=== PATIENT | female | born 1940 | race Caucasian/White ===

== ENCOUNTER 2017-11-29 16:25 | Inpatient (IN) | payer MEDICARE, OTHER ==
[~2017-11-29] VITALS: Ht 177.8 cm; Wt 117.5 kg
[2017-11-29] MEDS ORDERED: SODIUM CHLORIDE FLUSH 10ML SYR IVF ONE (17:30)
[2017-11-29] MEDS ORDERED: SODIUM CHLORIDE 0.9% 1,000ML IVBOLUS ONE ×3 (17:30→19:30)
[2017-11-29 17:57] LABS: MEAN CORPUSCULAR HEMOGLOBIN 26.7 pg (27.0-34.8); MEAN CORPUSCULAR HGB CONC 32.7 g/dL (32.4-35.8); MEAN CORPUSCULAR VOLUME 81.5 fL (80-100); MEAN PLATELET VOLUME 7.1 fL (7.4-10.4); PLATELET COUNT 370 x10^3/uL (130-400); RED BLOOD COUNT 4.61 x10^6/uL (3.82-5.3); RED CELL DISTRIBUTION WIDTH 15.3 % (9.6-15.2)
[2017-11-29 18:06] LABS: INTERNATIONAL NORMALIZED RATIO 1.03 (0.93-1.1); PROTHROMBIN TIME 10.7 Seconds (9.6-11.5)
[2017-11-29 18:10] LABS: ALANINE AMINOTRANSFERASE 28 U/L (12-78); ALBUMIN 2.8 g/dL (3.4-5.0); ANION GAP 9 mmol/L (5-15); CALCIUM 8.8 mg/dL (8.5-10.1); CHLORIDE 99 mmol/L (98-107); CREATININE 0.92 mg/dL (0.55-1.02)
[2017-11-29 18:14] LABS: ALKALINE PHOSPHATASE 113 U/L (45-117); BILIRUBIN,TOTAL 0.8 mg/dL (0.2-1.0); TROPONIN I 0.049 ng/mL (0.000-0.045)
[2017-11-29 18:32] LABS: MD YES
[2017-11-29 18:34] LABS: BAND#(MANUAL) 1.33 x10^3/uL; BANDS%(MANUAL) 8 % (0-7); LYMPH#(MANUAL) 0.33 x10^3/uL (1-3.4); LYMPHS% (MANUAL) 2 % (22-44); MONOS#(MANUAL) 0.83 x10^3/uL (0.3-2.7); MONOS% (MANUAL) 5 % (2-9); SEGS% (MANUAL) 85 % (42-75)
[2017-11-29 18:37] LABS: <PLATELET ESTIMATE> ADEQUATE; <PLT MORPHOLOGY> NORMAL PLT MORPH; ANISOCYTOSIS 1+; MICROCYTOSIS 1+; POLYCHROMASIA 1+
[2017-11-29] MEDS ORDERED: ACETAMINOPHEN 500 MG TABLET ONE (18:56)
[2017-11-29] MEDS ORDERED: ACETAMINOPHEN 500 MG TABLET PO ONE (19:00)
[2017-11-29] MEDS ORDERED: CEFTRIAXONE PMX 1GM/50ML 50 ML IVPB ONE (19:00)
[2017-11-29] MEDS ORDERED: AMPICILLIN/SULBACTAM 3 GM in SODIUM CHLORIDE 0.9% 100 ML IVPB ONE (19:00)
[2017-11-29 19:13] LABS: MICROSCOPIC INDICATED
[2017-11-29 19:26] LABS: CULTURE INDICATED? NO
[2017-11-29] MEDS ORDERED: AMIO200T42 PO (20:24)
[2017-11-29] MEDS ORDERED: CLOP75TA52 PO (20:24)
[2017-11-29] MEDS ORDERED: METF500T4 PO (20:24)
[2017-11-29] MEDS ORDERED: LISI5TAB7 PO (20:24)
[2017-11-29] MEDS ORDERED: PHARMACOKINETIC MONITORING MC PRN (22:30)
[2017-11-29 22:40] VITALS: BP 104/42
[2017-11-29] MEDS ORDERED: SODIUM CHLORIDE 0.9%, 500ML IVBOLUS ONE (23:00)
[2017-11-29] MEDS: INSULIN ASPART 100 UNITS/ML, PEN SQ-INSULIN SCH (23:13)
[2017-11-29 23:16] VITALS: BP 113/45
[2017-11-30 00:17] VITALS: BP 121/53
[2017-11-30] MEDS: ENOXAPARIN 40 MG/0.4 ML SQ SCH (01:20)
[2017-11-30] MEDS: VANCOMYCIN 2,500 MG in SODIUM CHLORIDE 0.9% 500 ML IV SCH (01:20)
[2017-11-30] MEDS: ACETAMINOPHEN 325 MG TABLET PO PRN ×2 (03:12→08:34)
[2017-11-30] MEDS: PIPERACILLIN/TAZO/PMX 4.5GM 100 ML IV SCH ×3 (03:49→17:07)
[2017-11-30] MEDS ORDERED: VANCOMYCIN PER PHARMACY MC PRN (04:00)
[2017-11-30] MEDS: INSULIN ASPART 100 UNITS/ML, PEN SQ-INSULIN SCH ×4 (07:00→20:48)
[2017-11-30 07:12] LABS: MEAN CORPUSCULAR HEMOGLOBIN 26.9 pg (27.0-34.8); MEAN CORPUSCULAR HGB CONC 33.1 g/dL (32.4-35.8); MEAN CORPUSCULAR VOLUME 81.2 fL (80-100); MEAN PLATELET VOLUME 7.3 fL (7.4-10.4); PLATELET COUNT 267 x10^3/uL (130-400); RED BLOOD COUNT 3.68 x10^6/uL (3.82-5.3); RED CELL DISTRIBUTION WIDTH 15.5 % (9.6-15.2)
[2017-11-30 07:17] LABS: ANION GAP 9 mmol/L (5-15); CHLORIDE 104 mmol/L (98-107); CREATININE 0.88 mg/dL (0.55-1.02)
[2017-11-30 07:29] LABS: MD YES
[2017-11-30 07:30] LABS: EOS#(MANUAL) 0.31 x10^3/uL (0.0-0.4); EOS% (MANUAL) 2 % (1-7); LYMPH#(MANUAL) 1.38 x10^3/uL (1-3.4); LYMPHS% (MANUAL) 9 % (22-44); MONOS#(MANUAL) 0.77 x10^3/uL (0.3-2.7); MONOS% (MANUAL) 5 % (2-9); SEG#(MANUAL) 12.85 x10^3/uL (1.8-6.8); SEGS% (MANUAL) 84 % (42-75)
[2017-11-30 07:31] LABS: ANISOCYTOSIS 1+; MICROCYTOSIS 1+; POLYCHROMASIA 1+
[2017-11-30 07:32] LABS: <PLATELET ESTIMATE> ADEQUATE; <PLT MORPHOLOGY> NORMAL PLT MORPH
[2017-11-30 08:20] VITALS: BP 126/56
[2017-11-30] MEDS ORDERED: POTASSIUM CHLORIDE 20 MEQ TAB.ER.PRT PO ONE (08:30)
[2017-11-30] MEDS: AMIODARONE 200 MG TABLET PO SCH (08:34)
[2017-11-30] MEDS: CLOPIDOGREL 75 MG TABLET PO SCH (08:34)
[2017-11-30] MEDS: LISINOPRIL 5 MG TABLET PO SCH (08:35)
[2017-11-30] MEDS ORDERED: POTASSIUM CHLORIDE 10 MEQ TABLET.ER ONE (08:37)
[2017-11-30] MEDS ORDERED: MORPHINE SULFATE 4 MG/ML, 1ML IVPush ONE (12:30)
[2017-11-30] MEDS ORDERED: GADOBUTROL 10 MMOL/10 ML PFS ONE (13:14)
[2017-11-30 13:58] VITALS: BP 114/58
[2017-11-30 19:10] VITALS: BP 159/59
[2017-11-30] MEDS: PIPERACILLIN/TAZO 4.5 GM in SODIUM CHLORIDE 0.9% 100 ML IV SCH ×2 (20:49→23:34)
[2017-12-01 00:32] VITALS: BP 144/62
[2017-12-01] MEDS: ENOXAPARIN 40 MG/0.4 ML SQ SCH (01:19)
[2017-12-01] MEDS: VANCOMYCIN 2,500 MG in SODIUM CHLORIDE 0.9% 500 ML IV SCH (01:19)
[2017-12-01] MEDS: ACETAMINOPHEN 325 MG TABLET PO PRN ×2 (03:24→08:48)
[2017-12-01] MEDS: PIPERACILLIN/TAZO 4.5 GM in SODIUM CHLORIDE 0.9% 100 ML IV SCH ×3 (05:51→20:42)
[2017-12-01 05:58] LABS: ANION GAP 10 mmol/L (5-15); CALCIUM 8.6 mg/dL (8.5-10.1); CHLORIDE 105 mmol/L (98-107)
[2017-12-01 06:00] LABS: CREATININE 0.75 mg/dL (0.55-1.02)
[2017-12-01 06:11] LABS: MEAN CORPUSCULAR HGB CONC 32.9 g/dL (32.4-35.8); MEAN PLATELET VOLUME 7.5 fL (7.4-10.4); PLATELET COUNT 326 x10^3/uL (130-400); RED BLOOD COUNT 3.79 x10^6/uL (3.82-5.3); RED CELL DISTRIBUTION WIDTH 15.8 % (9.6-15.2)
[2017-12-01 06:34] LABS: BASOPHILS # (AUTO) 0.02 x10^3/uL (0-0.1); BASOPHILS % (AUTO) 0 % (0-1); EOSINOPHILS # (AUTO) 0.17 x10^3/uL (0-0.4); EOSINOPHILS % (AUTO) 1 % (1-7); LYMPHOCYTES # (AUTO) 1.66 x10^3/uL (1-3.4); LYMPHOCYTES % (AUTO) 14 % (22-44); MD SCAN; MONOCYTES # (AUTO) 0.93 x10^3/uL (0.2-0.8); MONOCYTES % (AUTO) 8 % (2-9); NEUTROPHILS # (AUTO) 9.33 x10^3/uL (1.8-6.8); NEUTROPHILS % (AUTO) 77 % (42-75)
[2017-12-01 07:10] VITALS: BP 171/70
[2017-12-01] MEDS: AMIODARONE 200 MG TABLET PO SCH (08:49)
[2017-12-01] MEDS: LISINOPRIL 5 MG TABLET PO SCH (08:49)
[2017-12-01] MEDS: INSULIN ASPART 100 UNITS/ML, PEN SQ-INSULIN SCH ×4 (08:49→20:43)
[2017-12-01] MEDS: CLOPIDOGREL 75 MG TABLET PO SCH (08:49)
[2017-12-01 13:30] VITALS: BP 169/69
[2017-12-01 20:00] VITALS: BP 167/66
[2017-12-02 02:00] VITALS: BP 165/60
[2017-12-02] MEDS: VANCOMYCIN 2,500 MG in SODIUM CHLORIDE 0.9% 500 ML IV SCH ×2 (02:00→20:29)
[2017-12-02] MEDS: ENOXAPARIN 40 MG/0.4 ML SQ SCH (02:01)
[2017-12-02] MEDS: PIPERACILLIN/TAZO 4.5 GM in SODIUM CHLORIDE 0.9% 100 ML IV SCH ×4 (04:59→19:40)
[2017-12-02 07:32] VITALS: BP 188/68
[2017-12-02 07:52] LABS: BASOPHILS # (AUTO) 0.03 x10^3/uL (0-0.1); BASOPHILS % (AUTO) 0 % (0-1); EOSINOPHILS # (AUTO) 0.19 x10^3/uL (0-0.4); EOSINOPHILS % (AUTO) 1 % (1-7); LYMPHOCYTES % (AUTO) 13 % (22-44); MD NO; MEAN CORPUSCULAR HEMOGLOBIN 26.8 pg (27.0-34.8); MEAN CORPUSCULAR HGB CONC 33.2 g/dL (32.4-35.8); MEAN CORPUSCULAR VOLUME 80.9 fL (80-100); MEAN PLATELET VOLUME 7.2 fL (7.4-10.4); MONOCYTES # (AUTO) 0.96 x10^3/uL (0.2-0.8); MONOCYTES % (AUTO) 7 % (2-9); NEUTROPHILS # (AUTO) 11.33 x10^3/uL (1.8-6.8); NEUTROPHILS % (AUTO) 79 % (42-75); PLATELET COUNT 398 x10^3/uL (130-400); RED BLOOD COUNT 4.24 x10^6/uL (3.82-5.3); RED CELL DISTRIBUTION WIDTH 15.2 % (9.6-15.2)
[2017-12-02 07:59] LABS: ANION GAP 11 mmol/L (5-15); CALCIUM 8.5 mg/dL (8.5-10.1); CHLORIDE 103 mmol/L (98-107)
[2017-12-02] MEDS: CLOPIDOGREL 75 MG TABLET PO SCH (08:39)
[2017-12-02] MEDS: AMIODARONE 200 MG TABLET PO SCH (08:39)
[2017-12-02] MEDS: INSULIN ASPART 100 UNITS/ML, PEN SQ-INSULIN SCH ×4 (08:39→20:29)
[2017-12-02] MEDS: LISINOPRIL 5 MG TABLET PO SCH (08:39)
[2017-12-02 11:58] VITALS: BP 162/71
[2017-12-02 13:42] VITALS: BP 158/61
[2017-12-02 18:44] VITALS: BP 168/72
[2017-12-02] MEDS: ACETAMINOPHEN 325 MG TABLET PO PRN (20:28)
[2017-12-03 00:55] VITALS: BP 161/65
[2017-12-03] MEDS: PIPERACILLIN/TAZO 4.5 GM in SODIUM CHLORIDE 0.9% 100 ML IV SCH ×4 (02:35→20:15)
[2017-12-03 04:54] LABS: INTERNATIONAL NORMALIZED RATIO 1.07 (0.93-1.1); PROTHROMBIN TIME 11.1 Seconds (9.6-11.5)
[2017-12-03 04:58] LABS: MEAN CORPUSCULAR HEMOGLOBIN 27.2 pg (27.0-34.8); MEAN CORPUSCULAR HGB CONC 33.2 g/dL (32.4-35.8); MEAN CORPUSCULAR VOLUME 81.8 fL (80-100); MEAN PLATELET VOLUME 7.3 fL (7.4-10.4); PLATELET COUNT 373 x10^3/uL (130-400); RED BLOOD COUNT 4.11 x10^6/uL (3.82-5.3); RED CELL DISTRIBUTION WIDTH 15.4 % (9.6-15.2)
[2017-12-03 05:01] LABS: ALBUMIN 2.4 g/dL (3.4-5.0); ANION GAP 9 mmol/L (5-15); CALCIUM 8.6 mg/dL (8.5-10.1); CHLORIDE 104 mmol/L (98-107)
[2017-12-03 05:05] LABS: ALANINE AMINOTRANSFERASE 23 U/L (12-78); ALKALINE PHOSPHATASE 124 U/L (45-117); BILIRUBIN,TOTAL 0.6 mg/dL (0.2-1.0); CREATININE 0.93 mg/dL (0.55-1.02); TOTAL PROTEIN 7.1 g/dL (6.4-8.2)
[2017-12-03 05:40] LABS: BASOPHILS # (AUTO) 0.03 x10^3/uL (0-0.1); BASOPHILS % (AUTO) 0 % (0-1); EOSINOPHILS # (AUTO) 0.24 x10^3/uL (0-0.4); EOSINOPHILS % (AUTO) 2 % (1-7); LYMPHOCYTES % (AUTO) 14 % (22-44); MD SCAN; MONOCYTES # (AUTO) 0.86 x10^3/uL (0.2-0.8); MONOCYTES % (AUTO) 7 % (2-9); NEUTROPHILS # (AUTO) 9.11 x10^3/uL (1.8-6.8); NEUTROPHILS % (AUTO) 77 % (42-75)
[2017-12-03 07:43] VITALS: BP 186/75
[2017-12-03] MEDS: INSULIN ASPART 100 UNITS/ML, PEN SQ-INSULIN SCH ×4 (08:07→20:15)
[2017-12-03] MEDS: AMIODARONE 200 MG TABLET PO SCH (08:08)
[2017-12-03] MEDS: CLOPIDOGREL 75 MG TABLET PO SCH (08:08)
[2017-12-03] MEDS: LISINOPRIL 5 MG TABLET PO SCH (08:08)
[2017-12-03] MEDS: ENOXAPARIN 40 MG/0.4 ML SQ SCH (08:09)
[2017-12-03] MEDS ORDERED: GLYCERIN ADULT SUPP PR PRN (09:30)
[2017-12-03] MEDS ORDERED: MAGNESIUM CITRATE 300ML ORAL SOL PO PRN (09:30)
[2017-12-03] MEDS ORDERED: LABETALOL 5MG/ML, 20ML IVPush PRN (09:30)
[2017-12-03 11:25] VITALS: BP 187/77
[2017-12-03] MEDS: hydrALAzine 20 MG/ML, 1ML IV PRN (11:57)
[2017-12-03] MEDS: POLYETHYLENE GLYCOL 17 GM PACKET PO SCH (11:57)
[2017-12-03 13:49] VITALS: BP 168/72
[2017-12-03] MEDS: VANCOMYCIN 2,500 MG in SODIUM CHLORIDE 0.9% 500 ML IV SCH (14:27)
[2017-12-03 19:41] VITALS: BP 151/67
[2017-12-04 01:50] VITALS: BP 147/62
[2017-12-04] MEDS: PIPERACILLIN/TAZO 4.5 GM in SODIUM CHLORIDE 0.9% 100 ML IV SCH ×4 (02:22→21:16)
[2017-12-04 07:23] VITALS: BP 162/75
[2017-12-04] MEDS: VANCOMYCIN 2,500 MG in SODIUM CHLORIDE 0.9% 500 ML IV SCH (08:00)
[2017-12-04 08:02] LABS: MEAN CORPUSCULAR HEMOGLOBIN 26.7 pg (27.0-34.8); MEAN CORPUSCULAR VOLUME 81.1 fL (80-100); MEAN PLATELET VOLUME 7.5 fL (7.4-10.4); PLATELET COUNT 413 x10^3/uL (130-400); RED BLOOD COUNT 4.46 x10^6/uL (3.82-5.3); RED CELL DISTRIBUTION WIDTH 15.4 % (9.6-15.2)
[2017-12-04 08:13] LABS: ALBUMIN 2.1 g/dL (3.4-5.0); ANION GAP 9 mmol/L (5-15); CALCIUM 8.6 mg/dL (8.5-10.1); CHLORIDE 105 mmol/L (98-107)
[2017-12-04 08:15] LABS: CREATININE 1.08 mg/dL (0.55-1.02)
[2017-12-04] MEDS: INSULIN ASPART 100 UNITS/ML, PEN SQ-INSULIN SCH ×4 (08:29→21:15)
[2017-12-04] MEDS: AMIODARONE 200 MG TABLET PO SCH (08:30)
[2017-12-04] MEDS: LISINOPRIL 5 MG TABLET PO SCH (08:31)
[2017-12-04] MEDS: POLYETHYLENE GLYCOL 17 GM PACKET PO SCH (08:31)
[2017-12-04] MEDS: CLOPIDOGREL 75 MG TABLET PO SCH (08:32)
[2017-12-04] MEDS: ENOXAPARIN 40 MG/0.4 ML SQ SCH (08:34)
[2017-12-04 08:51] LABS: BASOPHILS # (AUTO) 0.03 x10^3/uL (0-0.1); BASOPHILS % (AUTO) 0 % (0-1); EOSINOPHILS # (AUTO) 0.15 x10^3/uL (0-0.4); EOSINOPHILS % (AUTO) 1 % (1-7); LYMPHOCYTES # (AUTO) 1.52 x10^3/uL (1-3.4); LYMPHOCYTES % (AUTO) 11 % (22-44); MD SCAN; MONOCYTES # (AUTO) 0.71 x10^3/uL (0.2-0.8); MONOCYTES % (AUTO) 5 % (2-9); NEUTROPHILS # (AUTO) 11.52 x10^3/uL (1.8-6.8); NEUTROPHILS % (AUTO) 83 % (42-75)
[2017-12-04] MEDS ORDERED: MAGNESIUM SULFATE PMX 4GM/100M 100 ML IV ONE (09:00)
[2017-12-04 13:59] VITALS: BP 177/67
[2017-12-04 17:55] VITALS: BP 167/59
[2017-12-04 19:44] VITALS: BP 159/64
[2017-12-05] VITALS (8 sets, daily range): BP systolic 156–194; BP diastolic 58–99
[2017-12-05] MEDS: PIPERACILLIN/TAZO 4.5 GM in SODIUM CHLORIDE 0.9% 100 ML IV SCH ×4 (01:35→20:51)
[2017-12-05] MEDS ORDERED: VANCOMYCIN 2,500 MG in SODIUM CHLORIDE 0.9% 500 ML IV SCH (02:00)
[2017-12-05 05:17] LABS: MEAN CORPUSCULAR HEMOGLOBIN 26.9 pg (27.0-34.8); MEAN CORPUSCULAR HGB CONC 32.9 g/dL (32.4-35.8); MEAN CORPUSCULAR VOLUME 81.9 fL (80-100); MEAN PLATELET VOLUME 6.9 fL (7.4-10.4); PLATELET COUNT 363 x10^3/uL (130-400); RED BLOOD COUNT 4.14 x10^6/uL (3.82-5.3); RED CELL DISTRIBUTION WIDTH 15.5 % (9.6-15.2)
[2017-12-05 05:55] LABS: BASOPHILS # (AUTO) 0.11 x10^3/uL (0-0.1); BASOPHILS % (AUTO) 1 % (0-1); EOSINOPHILS % (AUTO) 2 % (1-7); LYMPHOCYTES # (AUTO) 1.88 x10^3/uL (1-3.4); LYMPHOCYTES % (AUTO) 17 % (22-44); MD SCAN; MONOCYTES # (AUTO) 0.59 x10^3/uL (0.2-0.8); MONOCYTES % (AUTO) 5 % (2-9); NEUTROPHILS # (AUTO) 8.55 x10^3/uL (1.8-6.8); NEUTROPHILS % (AUTO) 75 % (42-75)
[2017-12-05] MEDS: hydrALAzine 20 MG/ML, 1ML IV PRN (06:39)
[2017-12-05 06:40] LABS: ANION GAP 10 mmol/L (5-15); CHLORIDE 106 mmol/L (98-107)
[2017-12-05 06:41] LABS: ALBUMIN 2.3 g/dL (3.4-5.0); CREATININE 1.15 mg/dL (0.55-1.02)
[2017-12-05] MEDS: INSULIN ASPART 100 UNITS/ML, PEN SQ-INSULIN SCH ×4 (09:13→20:51)
[2017-12-05] MEDS: POLYETHYLENE GLYCOL 17 GM PACKET PO SCH (09:13)
[2017-12-05] MEDS: ENOXAPARIN 40 MG/0.4 ML SQ SCH (09:14)
[2017-12-05] MEDS: LISINOPRIL 5 MG TABLET PO SCH (09:14)
[2017-12-05] MEDS: CLOPIDOGREL 75 MG TABLET PO SCH (09:14)
[2017-12-05] MEDS: SENNA/DOCUSATE TABLET PO PRN (09:16)
[2017-12-05] MEDS: AMIODARONE 200 MG TABLET PO SCH (09:16)
[2017-12-06] MEDS: PIPERACILLIN/TAZO 4.5 GM in SODIUM CHLORIDE 0.9% 100 ML IV SCH ×4 (02:35→21:07)
[2017-12-06 03:07] VITALS: BP 161/62
[2017-12-06] MEDS ORDERED: LISINOPRIL 10 MG TABLET ONE (08:07)
[2017-12-06 08:21] VITALS: BP 182/81
[2017-12-06] MEDS: CLOPIDOGREL 75 MG TABLET PO SCH (08:21)
[2017-12-06] MEDS: AMIODARONE 200 MG TABLET PO SCH (08:21)
[2017-12-06] MEDS: LISINOPRIL 10 MG TABLET PO SCH (08:21)
[2017-12-06] MEDS: ENOXAPARIN 40 MG/0.4 ML SQ SCH (08:22)
[2017-12-06] MEDS: POLYETHYLENE GLYCOL 17 GM PACKET PO SCH (08:22)
[2017-12-06] MEDS: hydrALAzine 20 MG/ML, 1ML IV PRN ×2 (08:23→14:31)
[2017-12-06 08:50] LABS: INTERNATIONAL NORMALIZED RATIO 1.04 (0.93-1.1); PROTHROMBIN TIME 10.8 Seconds (9.6-11.5)
[2017-12-06 08:54] LABS: ANION GAP 10 mmol/L (5-15); CALCIUM 8.8 mg/dL (8.5-10.1); CHLORIDE 101 mmol/L (98-107)
[2017-12-06 09:15] LABS: BASOPHILS # (AUTO) 0.02 x10^3/uL (0-0.1); BASOPHILS % (AUTO) 0 % (0-1); EOSINOPHILS # (AUTO) 0.14 x10^3/uL (0-0.4); EOSINOPHILS % (AUTO) 2 % (1-7); LYMPHOCYTES # (AUTO) 1.27 x10^3/uL (1-3.4); LYMPHOCYTES % (AUTO) 13 % (22-44); MD NO; MEAN CORPUSCULAR HEMOGLOBIN 26.7 pg (27.0-34.8); MEAN CORPUSCULAR HGB CONC 32.7 g/dL (32.4-35.8); MEAN CORPUSCULAR VOLUME 81.8 fL (80-100); MEAN PLATELET VOLUME 7.4 fL (7.4-10.4); MONOCYTES # (AUTO) 0.62 x10^3/uL (0.2-0.8); MONOCYTES % (AUTO) 7 % (2-9); NEUTROPHILS % (AUTO) 79 % (42-75); PLATELET COUNT 362 x10^3/uL (130-400); RED BLOOD COUNT 4.27 x10^6/uL (3.82-5.3); RED CELL DISTRIBUTION WIDTH 15.8 % (9.6-15.2)
[2017-12-06] MEDS: INSULIN ASPART 100 UNITS/ML, PEN SQ-INSULIN SCH ×4 (09:49→22:01)
[2017-12-06 09:54] VITALS: BP 163/52
[2017-12-06 14:24] VITALS: BP 176/65
[2017-12-06 16:29] VITALS: BP 171/70
[2017-12-06] MEDS ORDERED: MIDAZOLAM 1 MG/ML, 2ML ONE (17:17)
[2017-12-06] MEDS ORDERED: FENTANYL PF 250 MCG/5ML ONE (17:17)
[2017-12-06] MEDS ORDERED: NEOSTIGMINE 1 MG/ML, 10ML ONE (17:22)
[2017-12-06] MEDS ORDERED: GLYCOPYRROLATE 0.2MG/1ML, 5ML ONE (17:22)
[2017-12-06] MEDS ORDERED: PROPOFOL 10 MG/ML, 20ML ONE (17:22)
[2017-12-06] MEDS ORDERED: SUCCINYLCHOLINE 20 MG/ML, 10ML ONE (17:22)
[2017-12-06] MEDS ORDERED: DEXAMETHASONE 4 MG/ML, 1ML ONE (17:22)
[2017-12-06] MEDS ORDERED: ROCURONIUM 10 MG/ML,10ML ONE (17:22)
[2017-12-06] MEDS ORDERED: ONDANSETRON 2MG/ML, 2ML ONE (17:22)
[2017-12-06] MEDS ORDERED: CEFAZOLIN 1,000 MG ONE (17:22)
[2017-12-06] MEDS ORDERED: ONDANSETRON 2MG/ML, 2ML IVPush PRN (17:30)
[2017-12-06] MEDS ORDERED: HYDROcodone/APAP 7.5-325MG/15ML UDC PO PRN (17:30)
[2017-12-06] MEDS ORDERED: hydrALAzine 20 MG/ML, 1ML IV PRN (17:30)
[2017-12-06] MEDS ORDERED: ACETAMINOPHEN 325 MG TABLET PO PRN (17:30)
[2017-12-06] MEDS ORDERED: LABETALOL 5MG/ML, 20ML IV PRN (17:30)
[2017-12-06] MEDS ORDERED: FENTANYL PF 100 MCG/2ML IV PRN (17:30)
[2017-12-06] MEDS ORDERED: OXYcodone 5 MG/5 ML ORAL.SOL UDC PO PRN (17:30)
[2017-12-06] MEDS ORDERED: PROMETHAZINE 25 MG/ML, 1ML IV PRN (17:30)
[2017-12-06] MEDS ORDERED: PHENYLEPHRINE 10 MG/ML ONE (17:39)
[2017-12-06] MEDS ORDERED: FENTANYL PF 100 MCG/2ML ONE (18:20)
[2017-12-06] MEDS ORDERED: HYDROmorphone 2 MG/ML, 1ML ONE (19:38)
[2017-12-06] MEDS ORDERED: ACETAMINOPHEN 650 MG/20.3 ML UDC ONE (19:38)
[2017-12-06] MEDS ORDERED: OXYcodone 5 MG/5 ML ORAL.SOL UDC ONE (19:38)
[2017-12-06] MEDS: HYDROmorphone 1 MG/ML, 1ML IV PRN ×2 (19:44→19:50)
[2017-12-06] MEDS ORDERED: DIPHENHYDRAMINE 50 MG/ML, 1ML ONE (19:54)
[2017-12-06] MEDS: DIPHENHYDRAMINE 50 MG/ML, 1ML IVPush PRN (19:58)
[2017-12-06 21:16] VITALS: BP 144/54
[2017-12-07 00:24] VITALS: BP 150/67
[2017-12-07] MEDS: PIPERACILLIN/TAZO 4.5 GM in SODIUM CHLORIDE 0.9% 100 ML IV SCH ×4 (02:48→19:59)
[2017-12-07] MEDS: HYDROcodone/APAP 5/325 TABLET PO PRN ×4 (02:48→18:52)
[2017-12-07 05:28] LABS: MEAN CORPUSCULAR HEMOGLOBIN 25.4 pg (27.0-34.8); MEAN CORPUSCULAR HGB CONC 31.2 g/dL (32.4-35.8); MEAN CORPUSCULAR VOLUME 81.3 fL (80-100); MEAN PLATELET VOLUME 6.8 fL (7.4-10.4); PLATELET COUNT 348 x10^3/uL (130-400); RED BLOOD COUNT 3.89 x10^6/uL (3.82-5.3); RED CELL DISTRIBUTION WIDTH 15.4 % (9.6-15.2)
[2017-12-07 05:39] LABS: ALBUMIN 2.4 g/dL (3.4-5.0); ANION GAP 11 mmol/L (5-15); CALCIUM 8.1 mg/dL (8.5-10.1); CHLORIDE 105 mmol/L (98-107)
[2017-12-07 06:05] LABS: BASOPHILS # (AUTO) 0.08 x10^3/uL (0-0.1); BASOPHILS % (AUTO) 1 % (0-1); EOSINOPHILS # (AUTO) 0.01 x10^3/uL (0-0.4); EOSINOPHILS % (AUTO) 0 % (1-7); LYMPHOCYTES % (AUTO) 4 % (22-44); MD SCAN; MONOCYTES # (AUTO) 0.77 x10^3/uL (0.2-0.8); MONOCYTES % (AUTO) 5 % (2-9); NEUTROPHILS # (AUTO) 14.43 x10^3/uL (1.8-6.8); NEUTROPHILS % (AUTO) 90 % (42-75)
[2017-12-07] MEDS: INSULIN ASPART 100 UNITS/ML, PEN SQ-INSULIN SCH ×3 (08:53→12:48)
[2017-12-07] MEDS: AMIODARONE 200 MG TABLET PO SCH (08:54)
[2017-12-07] MEDS: CLOPIDOGREL 75 MG TABLET PO SCH (08:54)
[2017-12-07] MEDS: LISINOPRIL 10 MG TABLET PO SCH (08:54)
[2017-12-07] MEDS: POLYETHYLENE GLYCOL 17 GM PACKET PO SCH (08:55)
[2017-12-07] MEDS: ENOXAPARIN 40 MG/0.4 ML SQ SCH (08:55)
[2017-12-07 11:08] VITALS: BP 136/53
[2017-12-07 12:57] VITALS: BP 141/58
[2017-12-07] MEDS: INSULIN LISPRO 100 UNITS/ML, PEN SQ-INSULIN SCH ×2 (16:15→19:59)
[2017-12-07 18:17] VITALS: BP 136/52
[2017-12-07] MEDS: DIPHENHYDRAMINE 50 MG/ML, 1ML IVPush PRN (20:17)
[2017-12-08 01:04] VITALS: BP 126/59
[2017-12-08] MEDS: PIPERACILLIN/TAZO/PMX 4.5GM 100 ML IV SCH ×4 (02:36→21:11)
[2017-12-08] MEDS: HYDROcodone/APAP 5/325 TABLET PO PRN ×3 (04:15→23:14)
[2017-12-08 05:00] LABS: MEAN CORPUSCULAR HEMOGLOBIN 26.9 pg (27.0-34.8); MEAN CORPUSCULAR HGB CONC 32.8 g/dL (32.4-35.8); MEAN CORPUSCULAR VOLUME 81.9 fL (80-100); MEAN PLATELET VOLUME 7.3 fL (7.4-10.4); PLATELET COUNT 353 x10^3/uL (130-400); RED BLOOD COUNT 3.45 x10^6/uL (3.82-5.3); RED CELL DISTRIBUTION WIDTH 16.1 % (9.6-15.2)
[2017-12-08 05:08] LABS: ALANINE AMINOTRANSFERASE 24 U/L (12-78); ALBUMIN 2.4 g/dL (3.4-5.0); ANION GAP 8 mmol/L (5-15); CHLORIDE 104 mmol/L (98-107); CREATININE 1.32 mg/dL (0.55-1.02)
[2017-12-08 05:10] LABS: ALKALINE PHOSPHATASE 78 U/L (45-117); BILIRUBIN,TOTAL 0.5 mg/dL (0.2-1.0); TOTAL PROTEIN 6.7 g/dL (6.4-8.2)
[2017-12-08 05:50] LABS: BASOPHILS # (AUTO) 0.03 x10^3/uL (0-0.1); BASOPHILS % (AUTO) 0 % (0-1); EOSINOPHILS # (AUTO) 0.18 x10^3/uL (0-0.4); EOSINOPHILS % (AUTO) 1 % (1-7); LYMPHOCYTES # (AUTO) 2.32 x10^3/uL (1-3.4); LYMPHOCYTES % (AUTO) 18 % (22-44); MD SCAN; MONOCYTES # (AUTO) 0.86 x10^3/uL (0.2-0.8); MONOCYTES % (AUTO) 7 % (2-9); NEUTROPHILS # (AUTO) 9.54 x10^3/uL (1.8-6.8); NEUTROPHILS % (AUTO) 74 % (42-75)
[2017-12-08 07:56] VITALS: BP 136/53
[2017-12-08] MEDS: INSULIN LISPRO 100 UNITS/ML, PEN SQ-INSULIN SCH ×4 (08:18→21:11)
[2017-12-08] MEDS: POLYETHYLENE GLYCOL 17 GM PACKET PO SCH (08:25)
[2017-12-08] MEDS: AMIODARONE 200 MG TABLET PO SCH (08:26)
[2017-12-08] MEDS: CLOPIDOGREL 75 MG TABLET PO SCH (08:26)
[2017-12-08] MEDS: SENNA/DOCUSATE TABLET PO PRN (08:26)
[2017-12-08] MEDS ORDERED: MAGNESIUM SULFATE PMX 2GM/50ML 50 ML IV ONE (08:30)
[2017-12-08] MEDS ORDERED: AMLODIPINE 2.5 MG TABLET PO SCH (09:00)
[2017-12-08] MEDS ORDERED: SODIUM CHLORIDE 0.9% 1,000 ML IV ONE (09:30)
[2017-12-08 10:59] VITALS: BP 125/71
[2017-12-08] MEDS: ENOXAPARIN 40 MG/0.4 ML SQ SCH (11:33)
[2017-12-08 13:08] VITALS: BP 149/59
[2017-12-08 19:38] VITALS: BP 156/66
[2017-12-09 00:56] VITALS: BP 157/60
[2017-12-09] MEDS: HYDROcodone/APAP 5/325 TABLET PO PRN ×4 (02:08→23:29)
[2017-12-09] MEDS: PIPERACILLIN/TAZO/PMX 4.5GM 100 ML IV SCH (04:17)
[2017-12-09 04:58] LABS: BASOPHILS # (AUTO) 0.04 x10^3/uL (0-0.1); BASOPHILS % (AUTO) 0 % (0-1); EOSINOPHILS # (AUTO) 0.17 x10^3/uL (0-0.4); EOSINOPHILS % (AUTO) 2 % (1-7); LYMPHOCYTES # (AUTO) 1.71 x10^3/uL (1-3.4); LYMPHOCYTES % (AUTO) 16 % (22-44); MD NO; MEAN CORPUSCULAR HEMOGLOBIN 27.8 pg (27.0-34.8); MEAN CORPUSCULAR HGB CONC 33.5 g/dL (32.4-35.8); MEAN PLATELET VOLUME 7.3 fL (7.4-10.4); MONOCYTES # (AUTO) 0.73 x10^3/uL (0.2-0.8); MONOCYTES % (AUTO) 7 % (2-9); NEUTROPHILS # (AUTO) 8.26 x10^3/uL (1.8-6.8); NEUTROPHILS % (AUTO) 76 % (42-75); PLATELET COUNT 295 x10^3/uL (130-400); RED BLOOD COUNT 3.29 x10^6/uL (3.82-5.3); RED CELL DISTRIBUTION WIDTH 15.8 % (9.6-15.2)
[2017-12-09 05:11] LABS: CHLORIDE 106 mmol/L (98-107)
[2017-12-09 05:17] LABS: ANION GAP 9 mmol/L (5-15); CALCIUM 8.1 mg/dL (8.5-10.1); CREATININE 1.15 mg/dL (0.55-1.02)
[2017-12-09 07:15] VITALS: BP 151/66
[2017-12-09] MEDS ORDERED: LABETALOL 5MG/ML, 20ML IVPush PRN (08:30)
[2017-12-09] MEDS: CLOPIDOGREL 75 MG TABLET PO SCH (08:33)
[2017-12-09] MEDS: POLYETHYLENE GLYCOL 17 GM PACKET PO SCH (08:33)
[2017-12-09] MEDS: AMIODARONE 200 MG TABLET PO SCH (08:33)
[2017-12-09] MEDS: AMLODIPINE 5 MG TABLET PO SCH (08:33)
[2017-12-09] MEDS: INSULIN LISPRO 100 UNITS/ML, PEN SQ-INSULIN SCH ×4 (08:34→22:02)
[2017-12-09] MEDS: ENOXAPARIN 40 MG/0.4 ML SQ SCH (12:10)
[2017-12-09 14:54] VITALS: BP 149/43
[2017-12-09 19:06] VITALS: BP 148/55
[2017-12-10 02:19] VITALS: BP 169/64
[2017-12-10 07:15] VITALS: BP 169/66
[2017-12-10] MEDS: AMLODIPINE 5 MG TABLET PO SCH (09:26)
[2017-12-10] MEDS: POLYETHYLENE GLYCOL 17 GM PACKET PO SCH (09:26)
[2017-12-10] MEDS: HYDROcodone/APAP 5/325 TABLET PO PRN (09:26)
[2017-12-10] MEDS: AMIODARONE 200 MG TABLET PO SCH (09:26)
[2017-12-10] MEDS: CLOPIDOGREL 75 MG TABLET PO SCH (09:26)
[2017-12-10] MEDS: INSULIN LISPRO 100 UNITS/ML, PEN SQ-INSULIN SCH ×4 (09:26→20:32)
[2017-12-10 12:30] LABS: MICROSCOPIC AUTO
[2017-12-10 12:32] LABS: CULTURE INDICATED? YES
[2017-12-10] MEDS: ENOXAPARIN 40 MG/0.4 ML SQ SCH (13:18)
[2017-12-10 13:45] VITALS: BP 149/61
[2017-12-10] MEDS ORDERED: CEFTRIAXONE 1,000 MG in SODIUM CHLORIDE 0.9% 50 ML IV SCH (18:00)
[2017-12-10 19:32] VITALS: BP 160/62
[2017-12-11 02:05] VITALS: BP 166/63
[2017-12-11 05:27] LABS: BASOPHILS # (AUTO) 0.02 x10^3/uL (0-0.1); BASOPHILS % (AUTO) 0 % (0-1); EOSINOPHILS # (AUTO) 0.18 x10^3/uL (0-0.4); EOSINOPHILS % (AUTO) 2 % (1-7); LYMPHOCYTES # (AUTO) 1.75 x10^3/uL (1-3.4); LYMPHOCYTES % (AUTO) 15 % (22-44); MD NO; MEAN CORPUSCULAR HEMOGLOBIN 26.9 pg (27.0-34.8); MEAN CORPUSCULAR HGB CONC 32.9 g/dL (32.4-35.8); MEAN CORPUSCULAR VOLUME 81.9 fL (80-100); MEAN PLATELET VOLUME 7.3 fL (7.4-10.4); MONOCYTES # (AUTO) 0.71 x10^3/uL (0.2-0.8); MONOCYTES % (AUTO) 6 % (2-9); NEUTROPHILS # (AUTO) 9.16 x10^3/uL (1.8-6.8); NEUTROPHILS % (AUTO) 78 % (42-75); PLATELET COUNT 403 x10^3/uL (130-400); RED BLOOD COUNT 3.85 x10^6/uL (3.82-5.3)
[2017-12-11 05:35] LABS: CHLORIDE 103 mmol/L (98-107)
[2017-12-11 05:51] LABS: ALBUMIN 2.6 g/dL (3.4-5.0); ANION GAP 10 mmol/L (5-15); CALCIUM 9.2 mg/dL (8.5-10.1); CREATININE 0.88 mg/dL (0.55-1.02)
[2017-12-11 07:20] VITALS: BP 179/73
[2017-12-11] MEDS: POLYETHYLENE GLYCOL 17 GM PACKET PO SCH (08:11)
[2017-12-11] MEDS: INSULIN LISPRO 100 UNITS/ML, PEN SQ-INSULIN SCH ×3 (08:12→16:56)
[2017-12-11] MEDS: AMIODARONE 200 MG TABLET PO SCH (08:12)
[2017-12-11] MEDS: CLOPIDOGREL 75 MG TABLET PO SCH (08:12)
[2017-12-11] MEDS ORDERED: MAGNESIUM SULFATE PMX 4GM/100M 100 ML IV ONE (09:00)
[2017-12-11] MEDS ORDERED: AMLODIPINE 5 MG TABLET PO SCH (09:00)
[2017-12-11] MEDS: ENOXAPARIN 40 MG/0.4 ML SQ SCH (12:26)
[2017-12-11] MEDS: HYDROcodone/APAP 5/325 TABLET PO PRN (12:27)
[2017-12-11 13:33] VITALS: BP 151/57
== END 2017-12-11 17:28 | DRG 853 ==
LOC: ED 18:14 → EDIP 19:16 → 3NE 22:03
PROVIDERS: ADMIT Internal Medicine; ATTEND Internal Medicine
PROC: 0T9B70Z Drainage of Bladder with Drainage Device, Via Natural or Artificial Opening (ICD-10-PCS; 2017-11-29)
PROC: 0Y6J0Z1 Detachment at Left Lower Leg, High, Open Approach (ICD-10-PCS; principal; 2017-12-06 17:30)
DX: A41.9 Sepsis, unspecified organism (principal); E43 Unspecified severe protein-calorie malnutrition; N17.9 Acute kidney failure, unspecified; E11.40 Type 2 diabetes mellitus with diabetic neuropathy, unspecified; E11.621 Type 2 diabetes mellitus with foot ulcer; I48.91 Unspecified atrial fibrillation; E66.01 Morbid (severe) obesity due to excess calories; L03.116 Cellulitis of left lower limb; E11.65 Type 2 diabetes mellitus with hyperglycemia; Z68.41 Body mass index [BMI] 40.0-44.9, adult; L97.409 Non-pressure chronic ulcer of unspecified heel and midfoot with unspecified severity; N39.0 Urinary tract infection, site not specified; M86.8X7 Other osteomyelitis, ankle and foot; W18.30XA Fall on same level, unspecified, initial encounter; D64.9 Anemia, unspecified; I10 Essential (primary) hypertension; E11.610 Type 2 diabetes mellitus with diabetic neuropathic arthropathy; E11.69 Type 2 diabetes mellitus with other specified complication; E83.42 Hypomagnesemia; I25.10 Atherosclerotic heart disease of native coronary artery without angina pectoris; K59.00 Constipation, unspecified; R09.02 Hypoxemia; R65.20 Severe sepsis without septic shock; S91.332A Puncture wound without foreign body, left foot, initial encounter; Z79.899 Other long term (current) drug therapy; Z79.02 Long term (current) use of antithrombotics/antiplatelets; Z95.5 Presence of coronary angioplasty implant and graft; Y93.89 Activity, other specified; Y99.8 Other external cause status; Y92.041 Bathroom in boarding-house as the place of occurrence of the external cause; Z90.49 Acquired absence of other specified parts of digestive tract
CPT/HCPCS: 36415; 71045; 80048; 80053; 80202; 81001; 82040; 82947; 82962; 83605; 83735; 83880; 84145; 84484; 85025; 85610; 85730; 87040; 87086; 87106; 88307; 93005; 93922; 96361; 96365; A9585; J0295; J0690; J0696; J1100; J1170; J1650; J1815; J2250; J2405; J2543; J2704; J2710; J3010; J3370; J3490; J0330; J0360; J1200; J2370; J3475; J7030; J7040

== ENCOUNTER 2018-05-04 17:15 | Inpatient (IN) | payer MEDICARE ==
[~2018-05-04] VITALS: Ht 175.3 cm; Wt 107.7 kg
[~2018-05-04 17:15] MED LIST: AMIO200T42 PO; CLOP75TA52 PO; LISI5TAB7 PO; METF500T5 PO
[2018-05-04] MEDS ORDERED: METF500T27 PO (17:24)
[2018-05-04] MEDS ORDERED: MORPHINE SULFATE 4 MG/ML, 1ML ONE (18:16)
[2018-05-04] MEDS ORDERED: SODIUM CHLORIDE FLUSH 10ML SYR IVF ONE (18:30)
[2018-05-04] MEDS ORDERED: SODIUM CHLORIDE 0.9% 1,000ML IVBOLUS ONE (18:30)
[2018-05-04] MEDS ORDERED: MORPHINE SULFATE 4 MG/ML, 1ML IVPush PRN (18:30)
[2018-05-04 18:31] LABS: MEAN CORPUSCULAR HEMOGLOBIN 28.1 pg (27.0-34.8); MEAN CORPUSCULAR HGB CONC 33.3 g/dL (32.4-35.8); MEAN CORPUSCULAR VOLUME 84.5 fL (80-100); MEAN PLATELET VOLUME 7.6 fL (7.4-10.4); PLATELET COUNT 349 x10^3/uL (130-400); RED BLOOD COUNT 5.45 x10^6/uL (3.82-5.3); RED CELL DISTRIBUTION WIDTH 14.7 % (9.6-15.2)
[2018-05-04 18:39] LABS: INTERNATIONAL NORMALIZED RATIO 1.11 (0.93-1.1); PROTHROMBIN TIME 11.4 Seconds (9.6-11.5)
[2018-05-04 18:44] LABS: ALANINE AMINOTRANSFERASE 732 U/L (12-78); ALBUMIN 3.4 g/dL (3.4-5.0); ANION GAP 17 mmol/L (5-15); CALCIUM 9.5 mg/dL (8.5-10.1); CHLORIDE 97 mmol/L (98-107); CREATININE 1.25 mg/dL (0.55-1.02)
[2018-05-04 18:46] LABS: ALKALINE PHOSPHATASE 412 U/L (45-117); BILIRUBIN,TOTAL 4.9 mg/dL (0.2-1.0); TOTAL PROTEIN 8.3 g/dL (6.4-8.2)
[2018-05-04 18:47] LABS: MD YES
[2018-05-04 18:49] LABS: BAND#(MANUAL) 0.85 x10^3/uL; BANDS%(MANUAL) 5 % (0-7); LYMPH#(MANUAL) 0.51 x10^3/uL (1-3.4); LYMPHS% (MANUAL) 3 % (22-44); MONOS#(MANUAL) 0.34 x10^3/uL (0.3-2.7); MONOS% (MANUAL) 2 % (2-9); SEGS% (MANUAL) 90 % (42-75)
[2018-05-04 18:50] LABS: <PLATELET ESTIMATE> ADEQUATE; <PLT MORPHOLOGY> NORMAL PLT MORPH; <RBC MORPHOLOGY> NORMAL
[2018-05-04 18:57] LABS: MICROSCOPIC INDICATED
[2018-05-04] MEDS ORDERED: INSULIN REGULAR 100 UNITS/ML, 3ML VIAL SQ-INSULIN ONE (19:00)
[2018-05-04] MEDS ORDERED: INSULIN REGULAR 100 UNITS/ML, 3ML VIAL IVPush ONE (19:00)
[2018-05-04 19:09] LABS: ACETONE, SERUM Moderate(40mg/dL) mg/dL (Negative)
[2018-05-04] MEDS ORDERED: INSULIN REGULAR 100 UNITS/ML, 3ML VIAL ONE (19:15)
[2018-05-04] MEDS ORDERED: OMNIPAQUE 350 MG/ML, 100ML BOTTLE ONE (19:17)
[2018-05-04 19:29] LABS: CULTURE INDICATED? NO
[2018-05-04] MEDS ORDERED: SODIUM CHLORIDE 0.9%, 500ML IVBOLUS ONE (19:30)
[2018-05-04] MEDS ORDERED: PIPERACILLIN/TAZO/PMX 3.375GM 50 ML IVPB ONE (19:30)
[2018-05-04] MEDS ORDERED: PIPERACILLIN/TAZO/PMX 3.375GM 50 ML ONE (19:37)
[2018-05-04 19:41] LABS: PH, VENOUS 7.336 pH (7.320-7.420)
[2018-05-04] MEDS ORDERED: LORazepam 2 MG/ML, 1ML ONE (20:54)
[2018-05-04] MEDS ORDERED: DOCUSATE 100 MG CAPSULE PO PRN (21:00)
[2018-05-04] MEDS ORDERED: POLYETHYLENE GLYCOL 17 GM PACKET PO PRN (21:00)
[2018-05-04] MEDS ORDERED: BISACODYL 10 MG SUPP PR PRN (21:00)
[2018-05-04] MEDS ORDERED: ONDANSETRON 2MG/ML, 2ML IVPush PRN (21:00)
[2018-05-04] MEDS ORDERED: LORazepam 2 MG/ML, 1ML IVPush ONE (21:00)
[2018-05-04] MEDS ORDERED: hydrALAzine 20 MG/ML, 1ML IVPush PRN (21:00)
[2018-05-04] MEDS ORDERED: morphine SULFATE 10 MG/ML, 1ML IVPush PRN (21:00)
[2018-05-04 21:58] LABS: HEMOGLOBIN A1C 7.6 % (4.2-6.3)
[2018-05-04 22:00] VITALS: BP 105/59
[2018-05-04] MEDS ORDERED: MAGNESIUM SULFATE PMX 2GM/50ML 50 ML IV ONE (22:00)
[2018-05-04] MEDS ORDERED: MAGNESIUM SULFATE 2 GM in SODIUM CHLORIDE 0.9% 50 ML IV ONE (22:30)
[2018-05-04] MEDS: INSULIN LISPRO 100 UNITS/ML, PEN SQ-INSULIN SCH (23:09)
[2018-05-04] MEDS: NS + 20MEQ KCL 1,000 ML IV SCH (23:09)
[2018-05-05 01:41] VITALS: BP 108/71
[2018-05-05 05:33] LABS: BASOPHILS # (AUTO) 0.02 x10^3/uL (0-0.1); BASOPHILS % (AUTO) 0 % (0-1); EOSINOPHILS # (AUTO) 0.01 x10^3/uL (0-0.4); EOSINOPHILS % (AUTO) 0 % (1-7); LYMPHOCYTES # (AUTO) 1.04 x10^3/uL (1-3.4); LYMPHOCYTES % (AUTO) 7 % (22-44); MD NO; MEAN CORPUSCULAR HEMOGLOBIN 28.5 pg (27.0-34.8); MEAN CORPUSCULAR HGB CONC 33.9 g/dL (32.4-35.8); MEAN CORPUSCULAR VOLUME 84.1 fL (80-100); MEAN PLATELET VOLUME 7.4 fL (7.4-10.4); MONOCYTES # (AUTO) 0.79 x10^3/uL (0.2-0.8); MONOCYTES % (AUTO) 6 % (2-9); NEUTROPHILS # (AUTO) 12.38 x10^3/uL (1.8-6.8); NEUTROPHILS % (AUTO) 87 % (42-75); PLATELET COUNT 319 x10^3/uL (130-400); RED BLOOD COUNT 4.84 x10^6/uL (3.82-5.3); RED CELL DISTRIBUTION WIDTH 15.4 % (9.6-15.2)
[2018-05-05 05:47] LABS: ALBUMIN 2.9 g/dL (3.4-5.0); ANION GAP 11 mmol/L (5-15); CALCIUM 9.1 mg/dL (8.5-10.1); CHLORIDE 103 mmol/L (98-107)
[2018-05-05 05:51] LABS: ALANINE AMINOTRANSFERASE 610 U/L (12-78); ALKALINE PHOSPHATASE 352 U/L (45-117); BILIRUBIN,TOTAL 4.5 mg/dL (0.2-1.0); TOTAL PROTEIN 7.5 g/dL (6.4-8.2)
[2018-05-05] MEDS: INSULIN LISPRO 100 UNITS/ML, PEN SQ-INSULIN SCH ×4 (07:00→20:15)
[2018-05-05 08:00] VITALS: BP 139/57
[2018-05-05] MEDS ORDERED: INSULIN LISPRO 100 UNITS/ML, PEN SQ-INSULIN ONE ×3 (08:40→17:05)
[2018-05-05] MEDS: AMIODARONE 200 MG TABLET PO SCH (08:47)
[2018-05-05] MEDS ORDERED: CLOPIDOGREL 75 MG TABLET PO SCH (09:00)
[2018-05-05] MEDS: LISINOPRIL 5 MG TABLET PO SCH (09:00)
[2018-05-05] MEDS: NS + 20MEQ KCL 1,000 ML IV SCH (10:03)
[2018-05-05 13:20] VITALS: BP 135/74
[2018-05-05 20:15] VITALS: BP 142/70
[2018-05-05] MEDS: ACETAMINOPHEN 325 MG TABLET PO PRN (20:16)
[2018-05-05] MEDS: SODIUM CHLORIDE 0.9% 1,000 ML IV SCH (20:17)
[2018-05-05] MEDS: CEFTRIAXONE PMX 2GM/50ML 50 ML IV SCH (22:13)
[2018-05-06 01:03] VITALS: BP 145/65
[2018-05-06] MEDS: SODIUM CHLORIDE 0.9% 1,000 ML IV SCH (05:31)
[2018-05-06 05:50] LABS: BASOPHILS # (AUTO) 0.03 x10^3/uL (0-0.1); BASOPHILS % (AUTO) 0 % (0-1); EOSINOPHILS # (AUTO) 0.24 x10^3/uL (0-0.4); EOSINOPHILS % (AUTO) 2 % (1-7); LYMPHOCYTES # (AUTO) 0.82 x10^3/uL (1-3.4); LYMPHOCYTES % (AUTO) 8 % (22-44); MD NO; MEAN CORPUSCULAR HEMOGLOBIN 28.5 pg (27.0-34.8); MEAN CORPUSCULAR VOLUME 83.9 fL (80-100); MEAN PLATELET VOLUME 7.5 fL (7.4-10.4); MONOCYTES # (AUTO) 0.68 x10^3/uL (0.2-0.8); MONOCYTES % (AUTO) 6 % (2-9); NEUTROPHILS # (AUTO) 8.91 x10^3/uL (1.8-6.8); NEUTROPHILS % (AUTO) 84 % (42-75); PLATELET COUNT 282 x10^3/uL (130-400); RED BLOOD COUNT 4.53 x10^6/uL (3.82-5.3); RED CELL DISTRIBUTION WIDTH 15.4 % (9.6-15.2)
[2018-05-06 05:55] LABS: ALBUMIN 2.5 g/dL (3.4-5.0); ANION GAP 10 mmol/L (5-15); CALCIUM 8.3 mg/dL (8.5-10.1); CHLORIDE 107 mmol/L (98-107)
[2018-05-06 05:58] LABS: ALANINE AMINOTRANSFERASE 335 U/L (12-78); ALKALINE PHOSPHATASE 276 U/L (45-117); BILIRUBIN,TOTAL 1.2 mg/dL (0.2-1.0); CREATININE 0.73 mg/dL (0.55-1.02); TOTAL PROTEIN 6.8 g/dL (6.4-8.2)
[2018-05-06] MEDS: INSULIN LISPRO 100 UNITS/ML, PEN SQ-INSULIN SCH ×4 (07:00→22:00)
[2018-05-06] MEDS ORDERED: MAGNESIUM SULFATE PMX 2GM/50ML 50 ML IV ONE (08:00)
[2018-05-06 08:22] VITALS: BP 162/74
[2018-05-06] MEDS: LISINOPRIL 5 MG TABLET PO SCH (09:00)
[2018-05-06] MEDS: AMIODARONE 200 MG TABLET PO SCH ×2 (09:00→18:10)
[2018-05-06] MEDS ORDERED: INSULIN GLARGINE 100 UNITS/ML, PEN SQ-INSULIN ONE (09:15)
[2018-05-06] MEDS: POTASSIUM PHOSPHATE 44 MEQ in SODIUM CHLORIDE 0.9% 500 ML IV SCH ×2 (11:32→21:47)
[2018-05-06 14:09] VITALS: BP 151/75
[2018-05-06] MEDS ORDERED: FENTANYL PF 100 MCG/2ML ONE (15:34)
[2018-05-06] MEDS ORDERED: ROCURONIUM 10 MG/ML,10ML ONE (15:35)
[2018-05-06] MEDS ORDERED: SUCCINYLCHOLINE 20 MG/ML, 10ML ONE (15:35)
[2018-05-06] MEDS ORDERED: LIDOCAINE GEL 2%, 5ML ONE (15:35)
[2018-05-06] MEDS ORDERED: HYDROmorphone 1 MG/ML, 1ML IV PRN (16:00)
[2018-05-06] MEDS ORDERED: ONDANSETRON ODT 8 MG PO PRN (16:00)
[2018-05-06] MEDS ORDERED: hydrALAzine 20 MG/ML, 1ML IV PRN (16:00)
[2018-05-06] MEDS ORDERED: MORPHINE SULFATE 4 MG/ML, 1ML IVPush PRN (16:00)
[2018-05-06] MEDS ORDERED: PROMETHAZINE 25 MG/ML, 1ML IV PRN (16:00)
[2018-05-06] MEDS ORDERED: MEPERIDINE/PF 25MG/0.5ML IVPush PRN (16:00)
[2018-05-06] MEDS ORDERED: ALBUTEROL/IPRATROPIUM 2.5MG/0.5MG, 3 ML NPPB PRN (16:00)
[2018-05-06] MEDS ORDERED: LABETALOL 5MG/ML, 20ML IV PRN (16:00)
[2018-05-06] MEDS ORDERED: MIDAZOLAM 1 MG/ML, 2ML IV PRN (16:00)
[2018-05-06] MEDS ORDERED: OXYcodone 5 MG/5 ML ORAL.SOL UDC PO PRN (16:00)
[2018-05-06] MEDS ORDERED: EPHEDRINE 50 MG/ML, 1ML IM PRN (16:00)
[2018-05-06] MEDS ORDERED: FENTANYL PF 100 MCG/2ML IV PRN (16:00)
[2018-05-06] MEDS ORDERED: DEXAMETHASONE 4 MG/ML, 1ML ONE (16:08)
[2018-05-06] MEDS ORDERED: PROPOFOL 10 MG/ML, 20ML ONE (16:08)
[2018-05-06] MEDS ORDERED: CEFAZOLIN 1,000 MG ONE (16:08)
[2018-05-06] MEDS ORDERED: ONDANSETRON 2MG/ML, 2ML ONE (16:08)
[2018-05-06] MEDS ORDERED: INDOMETHACIN 50 MG SUPP.RECT ONE (16:24)
[2018-05-06] MEDS ORDERED: OMNIPAQUE 350 MG/ML, 50 ML BOTTLE ONE (16:35)
[2018-05-06] MEDS ORDERED: INSULIN LISPRO 100 UNITS/ML, PEN SQ-INSULIN ONE (16:55)
[2018-05-06] MEDS ORDERED: INDOMETHACIN 50 MG SUPP.RECT PR ONE (17:00)
[2018-05-06 20:00] VITALS: BP 168/75
[2018-05-06] MEDS: INSULIN GLARGINE 100 UNITS/ML, PEN SQ-INSULIN SCH (20:07)
[2018-05-06] MEDS: CEFTRIAXONE PMX 2GM/50ML 50 ML IV SCH (20:07)
[2018-05-07 02:21] VITALS: BP 146/70
[2018-05-07 05:11] LABS: BASOPHILS # (AUTO) 0.01 x10^3/uL (0-0.1); BASOPHILS % (AUTO) 0 % (0-1); EOSINOPHILS # (AUTO) 0.01 x10^3/uL (0-0.4); EOSINOPHILS % (AUTO) 0 % (1-7); LYMPHOCYTES # (AUTO) 0.94 x10^3/uL (1-3.4); LYMPHOCYTES % (AUTO) 10 % (22-44); MD NO; MEAN CORPUSCULAR HEMOGLOBIN 28.3 pg (27.0-34.8); MEAN CORPUSCULAR HGB CONC 33.3 g/dL (32.4-35.8); MEAN CORPUSCULAR VOLUME 84.9 fL (80-100); MEAN PLATELET VOLUME 7.4 fL (7.4-10.4); MONOCYTES # (AUTO) 0.54 x10^3/uL (0.2-0.8); MONOCYTES % (AUTO) 6 % (2-9); NEUTROPHILS # (AUTO) 7.54 x10^3/uL (1.8-6.8); NEUTROPHILS % (AUTO) 83 % (42-75); PLATELET COUNT 272 x10^3/uL (130-400); RED BLOOD COUNT 4.41 x10^6/uL (3.82-5.3); RED CELL DISTRIBUTION WIDTH 15.2 % (9.6-15.2)
[2018-05-07 05:17] LABS: ALBUMIN 2.5 g/dL (3.4-5.0); ANION GAP 9 mmol/L (5-15); CALCIUM 7.9 mg/dL (8.5-10.1); CHLORIDE 105 mmol/L (98-107)
[2018-05-07 05:23] LABS: ALANINE AMINOTRANSFERASE 215 U/L (12-78); ALKALINE PHOSPHATASE 238 U/L (45-117); BILIRUBIN,TOTAL 0.7 mg/dL (0.2-1.0); CREATININE 0.76 mg/dL (0.55-1.02); TOTAL PROTEIN 6.9 g/dL (6.4-8.2)
[2018-05-07 08:33] VITALS: BP 167/78
[2018-05-07] MEDS: INSULIN LISPRO 100 UNITS/ML, PEN SQ-INSULIN SCH ×4 (08:49→20:07)
[2018-05-07] MEDS: AMIODARONE 200 MG TABLET PO SCH (09:39)
[2018-05-07] MEDS: LISINOPRIL 5 MG TABLET PO SCH (09:39)
[2018-05-07] MEDS: SODIUM CHLORIDE 0.9% 1,000 ML IV SCH ×2 (09:40→20:08)
[2018-05-07 14:58] VITALS: BP 147/66
[2018-05-07] MEDS: ERTAPENEM 1 GM in SODIUM CHLORIDE 0.9% 50 ML IV SCH (17:54)
[2018-05-07 18:44] VITALS: BP 166/81
[2018-05-07] MEDS: INSULIN GLARGINE 100 UNITS/ML, PEN SQ-INSULIN SCH (20:07)
[2018-05-08 02:27] VITALS: BP 158/72
[2018-05-08] MEDS: SODIUM CHLORIDE 0.9% 1,000 ML IV SCH ×2 (06:34→16:29)
[2018-05-08 07:30] VITALS: BP 186/72
[2018-05-08] MEDS: AMIODARONE 200 MG TABLET PO SCH (07:43)
[2018-05-08] MEDS: INSULIN LISPRO 100 UNITS/ML, PEN SQ-INSULIN SCH ×4 (07:44→20:48)
[2018-05-08] MEDS: LISINOPRIL 5 MG TABLET PO SCH (07:44)
[2018-05-08] MEDS: INSULIN GLARGINE 100 UNITS/ML, PEN SQ-INSULIN SCH (09:18)
[2018-05-08] MEDS: ACETAMINOPHEN 325 MG TABLET PO PRN (11:37)
[2018-05-08 15:01] VITALS: BP 174/76
[2018-05-08] MEDS: ERTAPENEM 1 GM in SODIUM CHLORIDE 0.9% 50 ML IV SCH (16:30)
[2018-05-08 19:33] VITALS: BP 172/68
[2018-05-08 21:30] VITALS: BP 149/68
[2018-05-09 01:59] VITALS: BP 158/69
[2018-05-09] MEDS: SODIUM CHLORIDE 0.9% 1,000 ML IV SCH (04:41)
[2018-05-09 05:33] LABS: CHLORIDE 107 mmol/L (98-107)
[2018-05-09 05:37] LABS: BASOPHILS # (AUTO) 0.06 x10^3/uL (0-0.1); BASOPHILS % (AUTO) 1 % (0-1); EOSINOPHILS # (AUTO) 0.18 x10^3/uL (0-0.4); EOSINOPHILS % (AUTO) 2 % (1-7); LYMPHOCYTES # (AUTO) 1.97 x10^3/uL (1-3.4); LYMPHOCYTES % (AUTO) 20 % (22-44); MD NO; MEAN CORPUSCULAR HEMOGLOBIN 28.7 pg (27.0-34.8); MEAN CORPUSCULAR HGB CONC 34.1 g/dL (32.4-35.8); MEAN CORPUSCULAR VOLUME 84.1 fL (80-100); MEAN PLATELET VOLUME 7.6 fL (7.4-10.4); MONOCYTES # (AUTO) 0.72 x10^3/uL (0.2-0.8); MONOCYTES % (AUTO) 7 % (2-9); NEUTROPHILS # (AUTO) 6.87 x10^3/uL (1.8-6.8); NEUTROPHILS % (AUTO) 70 % (42-75); PLATELET COUNT 304 x10^3/uL (130-400); RED BLOOD COUNT 4.78 x10^6/uL (3.82-5.3); RED CELL DISTRIBUTION WIDTH 14.5 % (9.6-15.2)
[2018-05-09 05:40] LABS: ALANINE AMINOTRANSFERASE 91 U/L (12-78); ALBUMIN 2.5 g/dL (3.4-5.0); ALKALINE PHOSPHATASE 202 U/L (45-117); ANION GAP 7 mmol/L (5-15); CALCIUM 9.1 mg/dL (8.5-10.1); CREATININE 0.77 mg/dL (0.55-1.02); TOTAL PROTEIN 6.6 g/dL (6.4-8.2)
[2018-05-09] MEDS: INSULIN LISPRO 100 UNITS/ML, PEN SQ-INSULIN SCH ×4 (08:49→20:30)
[2018-05-09] MEDS: INSULIN GLARGINE 100 UNITS/ML, PEN SQ-INSULIN SCH (08:49)
[2018-05-09 08:50] VITALS: BP 155/79
[2018-05-09] MEDS: LISINOPRIL 5 MG TABLET PO SCH (08:50)
[2018-05-09] MEDS: AMIODARONE 200 MG TABLET PO SCH (08:50)
[2018-05-09] MEDS ORDERED: MAGNESIUM HYDROXIDE 8%, 30ML UDC PO ONE (11:30)
[2018-05-09 14:30] VITALS: BP 130/76
[2018-05-09] MEDS: ERTAPENEM 1 GM in SODIUM CHLORIDE 0.9% 50 ML IV SCH (17:03)
[2018-05-09 18:33] VITALS: BP 168/76
[2018-05-10 02:01] VITALS: BP 173/73
[2018-05-10 06:45] VITALS: BP 154/74
[2018-05-10] MEDS: INSULIN LISPRO 100 UNITS/ML, PEN SQ-INSULIN SCH ×4 (08:50→20:30)
[2018-05-10] MEDS: INSULIN GLARGINE 100 UNITS/ML, PEN SQ-INSULIN SCH ×2 (08:50→20:30)
[2018-05-10] MEDS: POLYETHYLENE GLYCOL 17 GM PACKET PO SCH (08:51)
[2018-05-10] MEDS: AMIODARONE 200 MG TABLET PO SCH (08:51)
[2018-05-10] MEDS: LISINOPRIL 5 MG TABLET PO SCH (08:52)
[2018-05-10 13:25] VITALS: BP 154/72
[2018-05-10] MEDS: ERTAPENEM 1 GM in SODIUM CHLORIDE 0.9% 50 ML IV SCH (16:35)
[2018-05-10 19:22] VITALS: BP 142/67
[2018-05-11 01:05] VITALS: BP 155/73
[2018-05-11] MEDS: INSULIN LISPRO 100 UNITS/ML, PEN SQ-INSULIN SCH ×4 (07:00→21:27)
[2018-05-11 07:38] VITALS: BP 156/73
[2018-05-11] MEDS: LISINOPRIL 5 MG TABLET PO SCH (09:00)
[2018-05-11] MEDS: POLYETHYLENE GLYCOL 17 GM PACKET PO SCH (09:00)
[2018-05-11] MEDS: AMIODARONE 200 MG TABLET PO SCH (09:38)
[2018-05-11] MEDS: INSULIN GLARGINE 100 UNITS/ML, PEN SQ-INSULIN SCH ×2 (09:39→21:26)
[2018-05-11] MEDS ORDERED: LIDOCAINE-MPF 1%, 2ML ONE (10:49)
[2018-05-11 14:34] VITALS: BP 138/63
[2018-05-11] MEDS: ERTAPENEM 1 GM in SODIUM CHLORIDE 0.9% 50 ML IV SCH (17:26)
[2018-05-11 19:53] VITALS: BP 157/69
[2018-05-11] MEDS: ACETAMINOPHEN 325 MG TABLET PO PRN (21:38)
[2018-05-12 01:41] VITALS: BP 131/69
[2018-05-12] MEDS: INSULIN LISPRO 100 UNITS/ML, PEN SQ-INSULIN SCH ×4 (07:00→20:53)
[2018-05-12 07:44] VITALS: BP 142/56
[2018-05-12] MEDS: POLYETHYLENE GLYCOL 17 GM PACKET PO SCH (09:00)
[2018-05-12] MEDS: LISINOPRIL 5 MG TABLET PO SCH (09:55)
[2018-05-12] MEDS: AMIODARONE 200 MG TABLET PO SCH (09:55)
[2018-05-12] MEDS: INSULIN GLARGINE 100 UNITS/ML, PEN SQ-INSULIN SCH ×2 (09:56→20:52)
[2018-05-12 13:37] VITALS: BP 147/55
[2018-05-12] MEDS ORDERED: POLY17PO5 PO (16:39)
[2018-05-12] MEDS ORDERED: INSU100I13 SQ-INSULIN (16:39)
[2018-05-12] MEDS ORDERED: ERTA1VIA IV (16:40)
[2018-05-12] MEDS: ERTAPENEM 1 GM in SODIUM CHLORIDE 0.9% 50 ML IV SCH (17:34)
[2018-05-12 20:00] VITALS: BP 148/50
[2018-05-13 00:47] VITALS: BP 154/62
[2018-05-13 06:49] VITALS: BP 156/59
[2018-05-13] MEDS: INSULIN LISPRO 100 UNITS/ML, PEN SQ-INSULIN SCH ×2 (07:00→11:29)
[2018-05-13] MEDS ORDERED: INSULIN GLARGINE 100 UNITS/ML, PEN SQ-INSULIN SCH (09:00)
[2018-05-13] MEDS: AMIODARONE 200 MG TABLET PO SCH (09:34)
[2018-05-13] MEDS: LISINOPRIL 5 MG TABLET PO SCH (09:34)
[2018-05-13] MEDS: POLYETHYLENE GLYCOL 17 GM PACKET PO SCH (09:35)
[2018-05-13 12:31] VITALS: BP 151/57
== END 2018-05-13 18:02 | DRG 871 ==
LOC: ED 19:49 → EDIP 20:45 → 3NE 21:40
PROVIDERS: ADMIT Hospitalist; ATTEND Hospitalist
PROC: BF101ZZ Fluoroscopy of Bile Ducts using Low Osmolar Contrast (ICD-10-PCS; principal; 2018-05-04)
PROC: 0FC98ZZ Extirpation of Matter from Common Bile Duct, Via Natural or Artificial Opening Endoscopic (ICD-10-PCS; 2018-05-04)
PROC: 0FBC8ZX Excision of Ampulla of Vater, Via Natural or Artificial Opening Endoscopic, Diagnostic (ICD-10-PCS; 2018-05-04)
PROC: 02HV33Z Insertion of Infusion Device into Superior Vena Cava, Percutaneous Approach (ICD-10-PCS; 2018-05-11)
PROC: B5181ZA Fluoroscopy of Superior Vena Cava using Low Osmolar Contrast, Guidance (ICD-10-PCS; 2018-05-11)
PROC: B548ZZA Ultrasonography of Superior Vena Cava, Guidance (ICD-10-PCS; 2018-05-11)
DX: A41.9 Sepsis, unspecified organism (principal); E11.00 Type 2 diabetes mellitus with hyperosmolarity without nonketotic hyperglycemic-hyperosmolar coma (NKHHC); N17.0 Acute kidney failure with tubular necrosis; E87.0 Hyperosmolality and hypernatremia; K80.31 Calculus of bile duct with cholangitis, unspecified, with obstruction; E03.9 Hypothyroidism, unspecified; Z89.512 Acquired absence of left leg below knee; R74.0 Nonspecific elevation of levels of transaminase and lactic acid dehydrogenase [LDH]; B96.1 Klebsiella pneumoniae [K. pneumoniae] as the cause of diseases classified elsewhere; B96.20 Unspecified Escherichia coli [E. coli] as the cause of diseases classified elsewhere; E78.5 Hyperlipidemia, unspecified; E83.39 Other disorders of phosphorus metabolism; I11.9 Hypertensive heart disease without heart failure; I48.0 Paroxysmal atrial fibrillation; K57.10 Diverticulosis of small intestine without perforation or abscess without bleeding; N93.9 Abnormal uterine and vaginal bleeding, unspecified; E11.65 Type 2 diabetes mellitus with hyperglycemia; E66.9 Obesity, unspecified; Z68.35 Body mass index [BMI] 35.0-35.9, adult; Z79.4 Long term (current) use of insulin; Z90.49 Acquired absence of other specified parts of digestive tract; Z95.5 Presence of coronary angioplasty implant and graft
CPT/HCPCS: 36415; 36569; 71045; 74177; 74181; 74328; 76830; 76937; 77001; 80053; 81001; 82010; 82803; 82947; 82962; 83036; 83605; 83690; 83735; 84100; 85014; 85018; 85025; 85610; 86850; 86900; 87040; 87046; 87077; 87186; 87427; 88305; 89055; 93005; 96361; 96372; 96374; 96375; J0690; J0696; J1100; J1335; J2405; J2543; J2704; J3010; J3480; J3490; Q9967; C1751; C1769; J0330; J0360; J1815; J2060; J2270; J3475; J7030; J7040

== ENCOUNTER 2018-10-08 12:00 | Inpatient (IN) | payer MEDICARE ==
[~2018-10-08] VITALS: Ht 177.8 cm; Wt 107.1 kg
[~2018-10-08 12:00] MED LIST changes: +ERTA1VIA IV; +INSU100I13 SQ-INSULIN; +METF500T17 PO; +METF500T27 PO; -METF500T5 PO; +POLY17PO5 PO
[2018-10-08] MEDS ORDERED: SODIUM CHLORIDE 0.9% 1,000ML IVBOLUS ONE ×2 (12:30→14:00)
[2018-10-08] MEDS ORDERED: SODIUM CHLORIDE FLUSH 10ML SYR IVF ONE (12:30)
[2018-10-08 13:06] LABS: MEAN CORPUSCULAR HEMOGLOBIN 29.2 pg (27.0-34.8); MEAN CORPUSCULAR HGB CONC 33.7 g/dL (32.4-35.8); MEAN CORPUSCULAR VOLUME 86.5 fL (80-100); MEAN PLATELET VOLUME 7.6 fL (7.4-10.4); PLATELET COUNT 215 x10^3/uL (130-400); RED BLOOD COUNT 4.47 x10^6/uL (3.82-5.3); RED CELL DISTRIBUTION WIDTH 15.2 % (9.6-15.2)
[2018-10-08] MEDS ORDERED: MORPHINE SULFATE 4 MG/ML, 1ML ONE ×2 (13:09→15:28)
[2018-10-08 13:17] LABS: ALANINE AMINOTRANSFERASE 18 U/L (12-78); ALBUMIN 2.6 g/dL (3.4-5.0); ANION GAP 15 mmol/L (5-15); CHLORIDE 97 mmol/L (98-107); CREATININE 1.33 mg/dL (0.55-1.02); INTERNATIONAL NORMALIZED RATIO 1.14 (0.93-1.1)
[2018-10-08 13:18] LABS: ALKALINE PHOSPHATASE 161 U/L (45-117); BILIRUBIN,TOTAL 1.4 mg/dL (0.2-1.0); TOTAL PROTEIN 7.3 g/dL (6.4-8.2)
[2018-10-08] MEDS ORDERED: ONDANSETRON 2MG/ML, 2ML ONE (13:18)
[2018-10-08] MEDS ORDERED: CEFTRIAXONE PMX 1GM/50ML 50 ML ONE ×2 (13:29→13:47)
[2018-10-08] MEDS ORDERED: MORPHINE SULFATE 4 MG/ML, 1ML IVPush ONE ×2 (13:30→15:30)
[2018-10-08] MEDS ORDERED: CEFTRIAXONE PMX 1GM/50ML 50 ML IV ONE ×2 (13:30→17:00)
[2018-10-08 13:33] LABS: CULTURE INDICATED? YES; MICROSCOPIC INDICATED
[2018-10-08 13:53] LABS: ACETONE, SERUM Large (80mg/dL) mg/dL (Negative)
[2018-10-08 14:00] LABS: TROPONIN I < 0.015 ng/mL (0.000-0.045)
[2018-10-08] MEDS ORDERED: INSULIN REGULAR 100 UNITS/ML, 3ML VIAL SQ-INSULIN ONE (14:00)
[2018-10-08 14:04] LABS: MD YES
[2018-10-08 14:07] LABS: BAND#(MANUAL) 2.15 x10^3/uL; BANDS%(MANUAL) 12 % (0-7); LYMPH#(MANUAL) 0.72 x10^3/uL (1-3.4); LYMPHS% (MANUAL) 4 % (22-44); METAMYELOCYTES# (MANUAL) 0.18 x10^3/uL (0-0); METAMYELOCYTES% (MANUAL) 1 % (0-1); MONOS#(MANUAL) 0.36 x10^3/uL (0.3-2.7); MONOS% (MANUAL) 2 % (2-9); SEGS% (MANUAL) 81 % (42-75)
[2018-10-08 14:09] LABS: <PLATELET ESTIMATE> ADEQUATE; <PLT MORPHOLOGY> NORMAL PLT MORPH; ANISOCYTOSIS 1+; POLYCHROMASIA 1+; TOXIC GRAN 2+
[2018-10-08] MEDS ORDERED: INSULIN REGULAR 100 UNITS/ML, 3ML VIAL ONE (14:09)
[2018-10-08] MEDS ORDERED: CEFTRIAXONE PMX 2GM/50ML 50 ML IV SCH (16:00)
[2018-10-08] MEDS ORDERED: INSULIN LISPRO 100 UNITS/ML, PEN SQ-INSULIN SCH (17:00)
[2018-10-08 17:16] LABS: HEMOGLOBIN A1C 9.9 % (4.2-6.3)
[2018-10-08] MEDS: SODIUM CHLORIDE 0.9% 1,000 ML IV SCH (17:23)
[2018-10-08 17:57] LABS: ANION GAP 15 mmol/L (5-15); CALCIUM 8.6 mg/dL (8.5-10.1); CHLORIDE 100 mmol/L (98-107); CREATININE 1.22 mg/dL (0.55-1.02)
[2018-10-08] MEDS: ACETAMINOPHEN 325 MG TABLET PO PRN ×3 (18:25→22:35)
[2018-10-08] MEDS: INSULIN LISPRO 100 UNITS/ML, PEN SQ-INSULIN SCH (18:29)
[2018-10-08 18:30] VITALS: BP 139/70
[2018-10-08 19:42] VITALS: BP 132/66
[2018-10-08] MEDS ORDERED: INSULIN GLARGINE 100 UNITS/ML, PEN SQ-INSULIN SCH (21:00)
[2018-10-08] MEDS: ONDANSETRON ODT 4 MG PO PRN (22:34)
[2018-10-09 01:25] VITALS: BP 126/62
[2018-10-09] MEDS: SODIUM CHLORIDE 0.9% 1,000 ML IV SCH ×2 (01:56→13:29)
[2018-10-09 04:45] LABS: MEAN CORPUSCULAR HEMOGLOBIN 28.9 pg (27.0-34.8); MEAN CORPUSCULAR HGB CONC 33.9 g/dL (32.4-35.8); MEAN CORPUSCULAR VOLUME 85.1 fL (80-100); MEAN PLATELET VOLUME 7.6 fL (7.4-10.4); PLATELET COUNT 149 x10^3/uL (130-400); RED BLOOD COUNT 3.97 x10^6/uL (3.82-5.3); RED CELL DISTRIBUTION WIDTH 14.9 % (9.6-15.2)
[2018-10-09 04:57] LABS: ALBUMIN 2.1 g/dL (3.4-5.0); ANION GAP 8 mmol/L (5-15); CALCIUM 8.1 mg/dL (8.5-10.1); CHLORIDE 105 mmol/L (98-107)
[2018-10-09 05:03] LABS: MD YES
[2018-10-09 05:05] LABS: ANISOCYTOSIS 1+; BAND#(MANUAL) 1.49 x10^3/uL; BANDS%(MANUAL) 9 % (0-7); LYMPH#(MANUAL) 1.33 x10^3/uL (1-3.4); LYMPHS% (MANUAL) 8 % (22-44); MONOS#(MANUAL) 0.66 x10^3/uL (0.3-2.7); MONOS% (MANUAL) 4 % (2-9); SEG#(MANUAL) 13.11 x10^3/uL (1.8-6.8); SEGS% (MANUAL) 79 % (42-75)
[2018-10-09 05:06] LABS: <PLATELET ESTIMATE> ADEQUATE; <PLT MORPHOLOGY> NORMAL PLT MORPH; TOXIC GRAN 1+
[2018-10-09 05:09] LABS: ALANINE AMINOTRANSFERASE 17 U/L (12-78); ALKALINE PHOSPHATASE 112 U/L (45-117); BILIRUBIN,TOTAL 0.5 mg/dL (0.2-1.0); CHOL/HDL RATIO 15.5; CHOLESTEROL, TOTAL 171 mg/dL (140-239); CREATININE 0.91 mg/dL (0.55-1.02); HDL CHOL % 6 % (28-40); HDL CHOLESTEROL (DIRECT) 11 mg/dL (40-60); LDL CHOLESTEROL,CALCULATED 94 mg/dL (54-169); LDL/HDL RATIO 8.5 (0.5-3.0); THYROID STIMULATING HORMONE 0.243 mIU/L (0.358-3.740); TOTAL PROTEIN 6.1 g/dL (6.4-8.2); TRIGLYCERIDES 330 mg/dL (50-200); VLDL CHOLESTEROL 66 mg/dL (0-25)
[2018-10-09 07:40] VITALS: BP 110/65
[2018-10-09] MEDS: INSULIN LISPRO 100 UNITS/ML, PEN SQ-INSULIN SCH ×4 (08:38→20:39)
[2018-10-09] MEDS: PANTOPRAZOLE 40 MG IV IVPush SCH (08:42)
[2018-10-09] MEDS: AMIODARONE 200 MG TABLET PO SCH (08:43)
[2018-10-09] MEDS ORDERED: MAGNESIUM SULFATE PMX 2GM/50ML 50 ML IV ONE (11:30)
[2018-10-09] MEDS: PIPERACILLIN/TAZO/PMX 4.5GM 100 ML IV SCH ×2 (11:54→17:38)
[2018-10-09] MEDS: ACETAMINOPHEN 325 MG TABLET PO PRN (12:04)
[2018-10-09 13:55] VITALS: BP 100/52
[2018-10-09] MEDS ORDERED: CEFTRIAXONE PMX 2GM/50ML 50 ML IV SCH (16:00)
[2018-10-09 19:18] VITALS: BP 107/58
[2018-10-09] MEDS ORDERED: SIMVASTATIN 20 MG TABLET PO SCH (21:00)
[2018-10-09] MEDS ORDERED: INSULIN GLARGINE 100 UNITS/ML, PEN SQ-INSULIN SCH (21:00)
[2018-10-10] MEDS: PIPERACILLIN/TAZO/PMX 4.5GM 100 ML IV SCH ×4 (00:11→17:31)
[2018-10-10] MEDS: ACETAMINOPHEN 325 MG TABLET PO PRN (00:56)
[2018-10-10 01:15] VITALS: BP 112/62
[2018-10-10] MEDS: ONDANSETRON ODT 4 MG PO PRN ×3 (02:27→20:02)
[2018-10-10] MEDS: SODIUM CHLORIDE 0.9% 1,000 ML IV SCH ×2 (02:29→13:32)
[2018-10-10 05:59] LABS: MEAN CORPUSCULAR HEMOGLOBIN 29.2 pg (27.0-34.8); MEAN CORPUSCULAR HGB CONC 34.2 g/dL (32.4-35.8); MEAN CORPUSCULAR VOLUME 85.5 fL (80-100); MEAN PLATELET VOLUME 8.5 fL (7.4-10.4); PLATELET COUNT 152 x10^3/uL (130-400); RED BLOOD COUNT 4.07 x10^6/uL (3.82-5.3); RED CELL DISTRIBUTION WIDTH 15.5 % (9.6-15.2)
[2018-10-10 06:11] LABS: ANION GAP 8 mmol/L (5-15); CALCIUM 7.7 mg/dL (8.5-10.1); CHLORIDE 104 mmol/L (98-107)
[2018-10-10 06:22] LABS: MD YES
[2018-10-10 06:23] LABS: BAND#(MANUAL) 1.32 x10^3/uL; BANDS%(MANUAL) 8 % (0-7); LYMPHS% (MANUAL) 3 % (22-44); MONOS#(MANUAL) 0.33 x10^3/uL (0.3-2.7); MONOS% (MANUAL) 2 % (2-9); SEG#(MANUAL) 14.36 x10^3/uL (1.8-6.8); SEGS% (MANUAL) 87 % (42-75)
[2018-10-10 06:24] LABS: <PLATELET ESTIMATE> ADEQUATE; <PLT MORPHOLOGY> NORMAL PLT MORPH; ALANINE AMINOTRANSFERASE 25 U/L (12-78); ALKALINE PHOSPHATASE 140 U/L (45-117); ANISOCYTOSIS 1+; BILIRUBIN,TOTAL 0.5 mg/dL (0.2-1.0); CREATININE 0.82 mg/dL (0.55-1.02); FREE T4 (FREE THYROXINE) 2.03 ng/dL (0.76-1.46); THYROID STIMULATING HORMONE 0.385 mIU/L (0.358-3.740); TOTAL PROTEIN 6.2 g/dL (6.4-8.2)
[2018-10-10 08:30] VITALS: BP 184/88
[2018-10-10] MEDS: PANTOPRAZOLE 40 MG IV IVPush SCH (09:12)
[2018-10-10] MEDS: INSULIN LISPRO 100 UNITS/ML, PEN SQ-INSULIN SCH ×4 (09:12→20:07)
[2018-10-10] MEDS ORDERED: MORPHINE SULFATE 4 MG/ML, 1ML IVPush ONE (09:30)
[2018-10-10] MEDS ORDERED: hydrALAzine 20 MG/ML, 1ML IV PRN ×2 (09:30→10:00)
[2018-10-10] MEDS ORDERED: ONDANSETRON 2MG/ML, 2ML IVPush PRN (09:30)
[2018-10-10 09:39] VITALS: BP 157/78
[2018-10-10 10:06] LABS: TROPONIN I 0.255 ng/mL (0.000-0.045)
[2018-10-10] MEDS ORDERED: ASPIRIN 81 MG TABLET CHEW PO ONE (12:00)
[2018-10-10] MEDS: METOPROLOL TARTRATE 25 MG TABLET PO SCH ×2 (12:29→17:31)
[2018-10-10] MEDS: AMIODARONE 200 MG TABLET PO SCH (12:29)
[2018-10-10 12:30] VITALS: BP 141/84
[2018-10-10 13:42] VITALS: BP 126/76
[2018-10-10] MEDS ORDERED: MORPHINE SULFATE 4 MG/ML, 1ML IV PRN (15:00)
[2018-10-10] MEDS ORDERED: HEPARIN 25,000 UNITS/500ML PMX 500 ML IV PRN (17:00)
[2018-10-10] MEDS ORDERED: HEPARIN 5,000 UNITS/ML, 1ML IV ONE (17:00)
[2018-10-10 17:36] LABS: MEAN CORPUSCULAR HEMOGLOBIN 28.6 pg (27.0-34.8); MEAN CORPUSCULAR HGB CONC 33.4 g/dL (32.4-35.8); MEAN CORPUSCULAR VOLUME 85.8 fL (80-100); MEAN PLATELET VOLUME 8.3 fL (7.4-10.4); PLATELET COUNT 194 x10^3/uL (130-400); RED BLOOD COUNT 4.13 x10^6/uL (3.82-5.3); RED CELL DISTRIBUTION WIDTH 15.3 % (9.6-15.2)
[2018-10-10 18:15] LABS: MD YES
[2018-10-10 18:17] LABS: <PLATELET ESTIMATE> ADEQUATE; <PLT MORPHOLOGY> NORMAL PLT MORPH; ANISOCYTOSIS 1+; BAND#(MANUAL) 0.95 x10^3/uL; BANDS%(MANUAL) 6 % (0-7); LYMPH#(MANUAL) 1.27 x10^3/uL (1-3.4); LYMPHS% (MANUAL) 8 % (22-44); MONOS#(MANUAL) 0.95 x10^3/uL (0.3-2.7); MONOS% (MANUAL) 6 % (2-9); SEG#(MANUAL) 12.72 x10^3/uL (1.8-6.8); SEGS% (MANUAL) 80 % (42-75)
[2018-10-10] MEDS: ATORVASTATIN 80 MG TABLET PO SCH (20:02)
[2018-10-10] MEDS: INSULIN GLARGINE 100 UNITS/ML, PEN SQ-INSULIN SCH (20:06)
[2018-10-10 20:40] VITALS: BP 126/84
[2018-10-10] MEDS ORDERED: ATORVASTATIN 40 MG TABLET PO SCH (21:00)
[2018-10-11] VITALS (7 sets, daily range): BP systolic 83–122; BP diastolic 52–73
[2018-10-11] MEDS: HEPARIN 5,000 UNITS/ML, 1ML IV PRN ×2 (00:25→08:42)
[2018-10-11] MEDS: PIPERACILLIN/TAZO/PMX 4.5GM 100 ML IV SCH ×4 (00:30→17:50)
[2018-10-11] MEDS: PANTOPROZOLE 40MG TABLET PO SCH (06:28)
[2018-10-11] MEDS: ASPIRIN 325 MG TABLET PO SCH (06:28)
[2018-10-11] MEDS: METOPROLOL TARTRATE 25 MG TABLET PO SCH ×2 (06:52→17:46)
[2018-10-11 08:07] LABS: MEAN CORPUSCULAR HEMOGLOBIN 28.5 pg (27.0-34.8); MEAN CORPUSCULAR HGB CONC 33.2 g/dL (32.4-35.8); MEAN PLATELET VOLUME 8.2 fL (7.4-10.4); PLATELET COUNT 185 x10^3/uL (130-400); RED CELL DISTRIBUTION WIDTH 15.2 % (9.6-15.2)
[2018-10-11] MEDS: INSULIN LISPRO 100 UNITS/ML, PEN SQ-INSULIN SCH ×4 (08:10→21:39)
[2018-10-11 08:18] LABS: ANION GAP 11 mmol/L (5-15); CALCIUM 7.8 mg/dL (8.5-10.1); CHLORIDE 104 mmol/L (98-107); CREATININE 0.99 mg/dL (0.55-1.02)
[2018-10-11 08:32] LABS: MD YES
[2018-10-11 08:35] LABS: BAND#(MANUAL) 0.36 x10^3/uL; BANDS%(MANUAL) 2 % (0-7); LYMPH#(MANUAL) 3.64 x10^3/uL (1-3.4); LYMPHS% (MANUAL) 20 % (22-44); METAMYELOCYTES# (MANUAL) 0.18 x10^3/uL (0-0); METAMYELOCYTES% (MANUAL) 1 % (0-1); MONOS#(MANUAL) 1.64 x10^3/uL (0.3-2.7); MONOS% (MANUAL) 9 % (2-9); MYELOCYTES# (MANUAL) 0.18 x10^3/uL (0-0); MYELOCYTES% (MANUAL) 1 % (0-0); SEG#(MANUAL) 12.19 x10^3/uL (1.8-6.8); SEGS% (MANUAL) 67 % (42-75)
[2018-10-11 08:36] LABS: <PLATELET ESTIMATE> ADEQUATE; <PLT MORPHOLOGY> NORMAL PLT MORPH; ANISOCYTOSIS 1+
[2018-10-11 08:37] LABS: POLYCHROMASIA 1+
[2018-10-11] MEDS: ACETAMINOPHEN 325 MG TABLET PO PRN (09:34)
[2018-10-11] MEDS: AMIODARONE 200 MG TABLET PO SCH (09:35)
[2018-10-11] MEDS: D5%-0.45NACL+KCL 40MEQ 1,000 ML IV SCH ×2 (10:09→22:39)
[2018-10-11] MEDS ORDERED: VERAPAMIL 2.5 MG/ML, 2ML ONE (11:02)
[2018-10-11] MEDS ORDERED: MIDAZOLAM 1 MG/ML, 5ML ONE (11:02)
[2018-10-11] MEDS ORDERED: BIVALIRUDIN 250 MG ONE (11:02)
[2018-10-11] MEDS ORDERED: TICAGRELOR 90 MG TABLET ONE (11:02)
[2018-10-11] MEDS ORDERED: FENTANYL PF 100 MCG/2ML ONE (11:02)
[2018-10-11] MEDS: SODIUM CHLORIDE 0.9% 1,000 ML IV SCH ×2 (11:50→21:22)
[2018-10-11] MEDS ORDERED: PHENYLEPHRINE 10 MG/ML ONE (12:01)
[2018-10-11] MEDS: INSULIN GLARGINE 100 UNITS/ML, PEN SQ-INSULIN SCH (21:39)
[2018-10-11] MEDS: ATORVASTATIN 80 MG TABLET PO SCH (21:39)
[2018-10-12] MEDS: PIPERACILLIN/TAZO/PMX 4.5GM 100 ML IV SCH ×3 (00:07→12:05)
[2018-10-12 00:23] VITALS: BP 121/71
[2018-10-12] MEDS: ACETAMINOPHEN 325 MG TABLET PO PRN ×4 (03:03→17:45)
[2018-10-12 05:36] LABS: ANION GAP 7 mmol/L (5-15); CALCIUM 7.4 mg/dL (8.5-10.1); CHLORIDE 107 mmol/L (98-107)
[2018-10-12 05:39] LABS: CREATININE 0.95 mg/dL (0.55-1.02)
[2018-10-12] MEDS: ASPIRIN 325 MG TABLET PO SCH (05:44)
[2018-10-12] MEDS: METOPROLOL TARTRATE 25 MG TABLET PO SCH (05:44)
[2018-10-12] MEDS: PANTOPROZOLE 40MG TABLET PO SCH (05:44)
[2018-10-12 05:47] LABS: MEAN CORPUSCULAR HEMOGLOBIN 28.4 pg (27.0-34.8); MEAN CORPUSCULAR HGB CONC 33.1 g/dL (32.4-35.8); MEAN CORPUSCULAR VOLUME 85.9 fL (80-100); MEAN PLATELET VOLUME 8.4 fL (7.4-10.4); PLATELET COUNT 182 x10^3/uL (130-400); RED BLOOD COUNT 3.57 x10^6/uL (3.82-5.3)
[2018-10-12] MEDS: INSULIN LISPRO 100 UNITS/ML, PEN SQ-INSULIN SCH ×4 (05:53→21:18)
[2018-10-12 06:27] LABS: BASOPHILS # (AUTO) 0.04 x10^3/uL (0-0.1); BASOPHILS % (AUTO) 0 % (0-1); EOSINOPHILS # (AUTO) 0.02 x10^3/uL (0-0.4); EOSINOPHILS % (AUTO) 0 % (1-7); LYMPHOCYTES # (AUTO) 1.27 x10^3/uL (1-3.4); LYMPHOCYTES % (AUTO) 10 % (22-44); MD SCAN; MONOCYTES # (AUTO) 1.14 x10^3/uL (0.2-0.8); MONOCYTES % (AUTO) 9 % (2-9); NEUTROPHILS # (AUTO) 10.39 x10^3/uL (1.8-6.8); NEUTROPHILS % (AUTO) 81 % (42-75)
[2018-10-12] MEDS: AMIODARONE 200 MG TABLET PO SCH (08:43)
[2018-10-12] MEDS ORDERED: LISINOPRIL 10 MG TABLET ONE (08:45)
[2018-10-12 08:49] VITALS: BP 104/68
[2018-10-12] MEDS ORDERED: LISINOPRIL 5 MG TABLET PO SCH (09:00)
[2018-10-12] MEDS: CLOPIDOGREL 75 MG TABLET PO SCH (11:28)
[2018-10-12] MEDS: SENNA/DOCUSATE TABLET PO SCH (11:28)
[2018-10-12] MEDS ORDERED: POLYETHYLENE GLYCOL 17 GM PACKET PO PRN (11:30)
[2018-10-12 11:43] LABS: ABSOLUTE RETICS # 0.04 x10^6/uL (0.5-2.5); RED BLOOD COUNT 3.51 x10^6/uL (3.82-5.3); RETICULOCYTE COUNT % 1.14 % (0.5-1.5)
[2018-10-12] MEDS: ENOXAPARIN 40 MG/0.4 ML SQ SCH (12:05)
[2018-10-12 14:51] VITALS: BP 112/59
[2018-10-12] MEDS: CEFTRIAXONE PMX 2GM/50ML 50 ML IV SCH ×2 (15:06→15:10)
[2018-10-12] MEDS: METOPROLOL SUCCINATE 25 MG TAB.ER.24H PO SCH (17:37)
[2018-10-12] MEDS ORDERED: METOPROLOL SUCCINATE 25 MG TAB.ER.24H PO SCH (18:00)
[2018-10-12 19:50] VITALS: BP 115/64
[2018-10-12] MEDS: ATORVASTATIN 80 MG TABLET PO SCH (21:14)
[2018-10-12] MEDS: INSULIN GLARGINE 100 UNITS/ML, PEN SQ-INSULIN SCH (21:18)
[2018-10-13] MEDS: ACETAMINOPHEN 325 MG TABLET PO PRN (00:04)
[2018-10-13 01:43] VITALS: BP 139/75
[2018-10-13] MEDS: SODIUM CHLORIDE FLUSH 10ML SYR IVF SCH ×4 (02:00→17:20)
[2018-10-13 05:20] LABS: BASOPHILS # (AUTO) 0.03 x10^3/uL (0-0.1); BASOPHILS % (AUTO) 0 % (0-1); EOSINOPHILS % (AUTO) 1 % (1-7); LYMPHOCYTES # (AUTO) 1.82 x10^3/uL (1-3.4); LYMPHOCYTES % (AUTO) 13 % (22-44); MD NO; MEAN CORPUSCULAR HEMOGLOBIN 29.2 pg (27.0-34.8); MEAN CORPUSCULAR HGB CONC 34.1 g/dL (32.4-35.8); MEAN CORPUSCULAR VOLUME 85.6 fL (80-100); MEAN PLATELET VOLUME 8.1 fL (7.4-10.4); MONOCYTES # (AUTO) 1.38 x10^3/uL (0.2-0.8); MONOCYTES % (AUTO) 10 % (2-9); NEUTROPHILS # (AUTO) 10.74 x10^3/uL (1.8-6.8); NEUTROPHILS % (AUTO) 76 % (42-75); PLATELET COUNT 246 x10^3/uL (130-400); RED BLOOD COUNT 3.56 x10^6/uL (3.82-5.3); RED CELL DISTRIBUTION WIDTH 15.1 % (9.6-15.2)
[2018-10-13 05:24] LABS: ANION GAP 6 mmol/L (5-15); CALCIUM 8.1 mg/dL (8.5-10.1); CHLORIDE 111 mmol/L (98-107); CREATININE 0.66 mg/dL (0.55-1.02)
[2018-10-13] MEDS: ASPIRIN 81 MG TABLET EC PO SCH (06:02)
[2018-10-13] MEDS: PANTOPROZOLE 40MG TABLET PO SCH (06:02)
[2018-10-13] MEDS ORDERED: POTASSIUM CHLORIDE 20 MEQ TAB.ER.PRT PO ONE (06:30)
[2018-10-13] MEDS: INSULIN LISPRO 100 UNITS/ML, PEN SQ-INSULIN SCH ×4 (07:00→21:11)
[2018-10-13] MEDS: CLOPIDOGREL 75 MG TABLET PO SCH (07:46)
[2018-10-13] MEDS: SENNA/DOCUSATE TABLET PO SCH (07:46)
[2018-10-13] MEDS: AMIODARONE 200 MG TABLET PO SCH (07:46)
[2018-10-13] MEDS ORDERED: LISINOPRIL 5 MG TABLET PO SCH (09:00)
[2018-10-13] MEDS: LISINOPRIL 10 MG TABLET PO SCH (09:37)
[2018-10-13 09:41] VITALS: BP 146/79
[2018-10-13] MEDS ORDERED: BISACODYL 10 MG SUPP PR ONE (11:00)
[2018-10-13] MEDS ORDERED: LACTULOSE 20 GM/30 ML UDC PO PRN (11:00)
[2018-10-13] MEDS: ENOXAPARIN 40 MG/0.4 ML SQ SCH (12:11)
[2018-10-13 12:39] LABS: OCCULT BLOOD NEGATIVE (NEGATIVE)
[2018-10-13] MEDS: CEFTRIAXONE PMX 2GM/50ML 50 ML IV SCH (14:00)
[2018-10-13 15:56] VITALS: BP 139/72
[2018-10-13] MEDS: METOPROLOL SUCCINATE 25 MG TAB.ER.24H PO SCH (17:19)
[2018-10-13 18:42] VITALS: BP 133/72
[2018-10-13 19:55] LABS: OCCULT BLOOD NEGATIVE (NEGATIVE)
[2018-10-13] MEDS: ATORVASTATIN 80 MG TABLET PO SCH (21:04)
[2018-10-13] MEDS: INSULIN GLARGINE 100 UNITS/ML, PEN SQ-INSULIN SCH (21:10)
[2018-10-14 02:02] VITALS: BP 143/73
[2018-10-14 04:15] LABS: MEAN CORPUSCULAR HEMOGLOBIN 28.8 pg (27.0-34.8); MEAN CORPUSCULAR HGB CONC 33.2 g/dL (32.4-35.8); MEAN CORPUSCULAR VOLUME 86.7 fL (80-100); MEAN PLATELET VOLUME 7.4 fL (7.4-10.4); PLATELET COUNT 351 x10^3/uL (130-400); RED BLOOD COUNT 3.61 x10^6/uL (3.82-5.3); RED CELL DISTRIBUTION WIDTH 15.3 % (9.6-15.2)
[2018-10-14 04:27] LABS: ALBUMIN 2.1 g/dL (3.4-5.0); ANION GAP 8 mmol/L (5-15); CALCIUM 8.5 mg/dL (8.5-10.1); CHLORIDE 110 mmol/L (98-107)
[2018-10-14 04:30] LABS: ALANINE AMINOTRANSFERASE 42 U/L (12-78); ALKALINE PHOSPHATASE 172 U/L (45-117); BILIRUBIN,TOTAL 0.5 mg/dL (0.2-1.0); CREATININE 0.57 mg/dL (0.55-1.02)
[2018-10-14 04:47] LABS: MD YES
[2018-10-14 04:52] LABS: ANISOCYTOSIS 1+; LYMPH#(MANUAL) 3.15 x10^3/uL (1-3.4); LYMPHS% (MANUAL) 22 % (22-44); METAMYELOCYTES# (MANUAL) 0.29 x10^3/uL (0-0); METAMYELOCYTES% (MANUAL) 2 % (0-1); MONOS% (MANUAL) 7 % (2-9); MYELOCYTES# (MANUAL) 0.14 x10^3/uL (0-0); MYELOCYTES% (MANUAL) 1 % (0-0); NRBC % (MANUAL) 1 % (0-1); POLYCHROMASIA 1+; SEG#(MANUAL) 9.72 x10^3/uL (1.8-6.8); SEGS% (MANUAL) 68 % (42-75)
[2018-10-14 04:53] LABS: <PLATELET ESTIMATE> ADEQUATE; <PLT MORPHOLOGY> NORMAL PLT MORPH
[2018-10-14] MEDS: PANTOPROZOLE 40MG TABLET PO SCH (06:01)
[2018-10-14] MEDS: ASPIRIN 81 MG TABLET EC PO SCH (06:01)
[2018-10-14] MEDS: ACETAMINOPHEN 325 MG TABLET PO PRN ×2 (06:02→23:34)
[2018-10-14 06:41] VITALS: BP 154/78
[2018-10-14] MEDS: LISINOPRIL 10 MG TABLET PO SCH (08:27)
[2018-10-14] MEDS: SENNA/DOCUSATE TABLET PO SCH (08:28)
[2018-10-14] MEDS: AMIODARONE 200 MG TABLET PO SCH (08:28)
[2018-10-14] MEDS: CLOPIDOGREL 75 MG TABLET PO SCH (08:28)
[2018-10-14] MEDS: INSULIN LISPRO 100 UNITS/ML, PEN SQ-INSULIN SCH ×4 (08:33→20:50)
[2018-10-14 10:37] LABS: OCCULT BLOOD NEGATIVE (NEGATIVE)
[2018-10-14] MEDS: ENOXAPARIN 40 MG/0.4 ML SQ SCH (11:05)
[2018-10-14] MEDS: SODIUM CHLORIDE FLUSH 10ML SYR IVF SCH ×2 (11:05→17:27)
[2018-10-14 13:04] VITALS: BP 145/71
[2018-10-14] MEDS: CEFTRIAXONE PMX 2GM/50ML 50 ML IV SCH (14:54)
[2018-10-14] MEDS ORDERED: INSU100I11 SQ-INSULIN (15:57)
[2018-10-14] MEDS ORDERED: ATOR-2 PO (15:57)
[2018-10-14] MEDS ORDERED: ONDA4VIA8 IVPush (15:57)
[2018-10-14] MEDS ORDERED: ACET325T14 PO (15:57)
[2018-10-14] MEDS ORDERED: ENOX40SY4 SQ (15:57)
[2018-10-14] MEDS ORDERED: INSU100I13 SQ-INSULIN (15:57)
[2018-10-14] MEDS ORDERED: AMIO200T42 PO (15:57)
[2018-10-14] MEDS ORDERED: CEFT2VIA53 IV (15:57)
[2018-10-14] MEDS ORDERED: CLOP75TA PO (15:57)
[2018-10-14] MEDS ORDERED: ASPI-621 PO (15:57)
[2018-10-14] MEDS ORDERED: METO25TA91 PO (15:57)
[2018-10-14] MEDS ORDERED: LISI-167 PO (15:57)
[2018-10-14] MEDS: METOPROLOL SUCCINATE 25 MG TAB.ER.24H PO SCH (17:26)
[2018-10-14 19:03] VITALS: BP 149/89
[2018-10-14] MEDS: ATORVASTATIN 80 MG TABLET PO SCH (20:45)
[2018-10-14] MEDS ORDERED: INSULIN GLARGINE 100 UNITS/ML, PEN SQ-INSULIN SCH (21:00)
[2018-10-15 01:20] VITALS: BP 156/87
[2018-10-15] MEDS: SODIUM CHLORIDE FLUSH 10ML SYR IVF SCH ×2 (01:28→08:57)
[2018-10-15] MEDS: PANTOPROZOLE 40MG TABLET PO SCH (06:10)
[2018-10-15] MEDS: ASPIRIN 81 MG TABLET EC PO SCH (06:10)
[2018-10-15] MEDS: INSULIN LISPRO 100 UNITS/ML, PEN SQ-INSULIN SCH ×2 (07:00→11:06)
[2018-10-15 07:05] VITALS: BP 122/74
[2018-10-15] MEDS: LISINOPRIL 10 MG TABLET PO SCH (08:57)
[2018-10-15] MEDS: SENNA/DOCUSATE TABLET PO SCH (08:57)
[2018-10-15] MEDS: CLOPIDOGREL 75 MG TABLET PO SCH (08:57)
[2018-10-15] MEDS: AMIODARONE 200 MG TABLET PO SCH (08:57)
[2018-10-15] MEDS: ENOXAPARIN 40 MG/0.4 ML SQ SCH (11:06)
[2018-10-15 13:48] VITALS: BP 147/79
[2018-10-15] MEDS: CEFTRIAXONE PMX 2GM/50ML 50 ML IV SCH (13:56)
== END 2018-10-15 15:13 | DRG 871 ==
LOC: ED 15:33 → EDIP 15:34 → ED 15:59 → 3NE 16:13 → 5SO 10-10 11:58
PROVIDERS: ADMIT Internal Medicine; ATTEND Internal Medicine
PROC: 0T9B70Z Drainage of Bladder with Drainage Device, Via Natural or Artificial Opening (ICD-10-PCS; 2018-10-08)
PROC: 4A023N7 Measurement of Cardiac Sampling and Pressure, Left Heart, Percutaneous Approach (ICD-10-PCS; 2018-10-11)
PROC: B2111ZZ Fluoroscopy of Multiple Coronary Arteries using Low Osmolar Contrast (ICD-10-PCS; 2018-10-11)
PROC: B2151ZZ Fluoroscopy of Left Heart using Low Osmolar Contrast (ICD-10-PCS; 2018-10-11)
PROC: 02HV33Z Insertion of Infusion Device into Superior Vena Cava, Percutaneous Approach (ICD-10-PCS; principal; 2018-10-12)
PROC: B548ZZA Ultrasonography of Superior Vena Cava, Guidance (ICD-10-PCS; 2018-10-12)
DX: A41.51 Sepsis due to Escherichia coli [E. coli] (principal); N17.0 Acute kidney failure with tubular necrosis; I21.4 Non-ST elevation (NSTEMI) myocardial infarction; D68.59 Other primary thrombophilia; E87.1 Hypo-osmolality and hyponatremia; E78.5 Hyperlipidemia, unspecified; I48.0 Paroxysmal atrial fibrillation; I11.9 Hypertensive heart disease without heart failure; E11.42 Type 2 diabetes mellitus with diabetic polyneuropathy; E11.51 Type 2 diabetes mellitus with diabetic peripheral angiopathy without gangrene; E78.1 Pure hyperglyceridemia; I25.10 Atherosclerotic heart disease of native coronary artery without angina pectoris; I25.5 Ischemic cardiomyopathy; N93.9 Abnormal uterine and vaginal bleeding, unspecified; I25.2 Old myocardial infarction; E87.6 Hypokalemia; I07.1 Rheumatic tricuspid insufficiency; E86.0 Dehydration; R65.20 Severe sepsis without septic shock; L89.319 Pressure ulcer of right buttock, unspecified stage; E83.42 Hypomagnesemia; K59.00 Constipation, unspecified; E66.9 Obesity, unspecified; N39.3 Stress incontinence (female) (male); B96.89 Other specified bacterial agents as the cause of diseases classified elsewhere; D64.9 Anemia, unspecified; Z79.4 Long term (current) use of insulin; Z95.5 Presence of coronary angioplasty implant and graft; Z87.891 Personal history of nicotine dependence; Z85.42 Personal history of malignant neoplasm of other parts of uterus; Z79.82 Long term (current) use of aspirin; Z79.02 Long term (current) use of antithrombotics/antiplatelets; Z90.49 Acquired absence of other specified parts of digestive tract; Z89.512 Acquired absence of left leg below knee; Z89.421 Acquired absence of other right toe(s); Z89.422 Acquired absence of other left toe(s); Z88.8 Allergy status to other drugs, medicaments and biological substances; Z68.33 Body mass index [BMI] 33.0-33.9, adult
CPT/HCPCS: 36415; 36569; 71045; 74176; 76937; 77001; 80048; 80053; 80061; 81001; 82010; 82272; 82728; 82947; 82962; 83036; 83540; 83550; 83605; 83690; 83735; 84100; 84145; 84439; 84443; 84466; 84481; 84484; 85025; 85045; 85520; 85610; 85730; 87040; 87046; 87077; 87086; 87186; 87427; 93005; 93306; 93454; 96372; 96374; 96376; 99156; 99285; C1769; C1894; G0378; J0583; J0696; J1644; J1650; J2250; J2405; J2543; J3010; Q0162; C1751; C9113; J0360; J1815; J2370; J3475; J3480; J7030; Q9967

== ENCOUNTER 2018-11-10 08:39 | Inpatient (IN) | payer MEDICARE ==
[~2018-11-10] VITALS: Ht 177.8 cm; Wt 92.0 kg
[~2018-11-10 08:39] MED LIST changes: +ACET325T14 PO; +ASPI81TA45 PO; +ATOR-2 PO; +CEFT2VIA53 IV; +CLOP75TA PO; +ENOX40SY4 SQ; +INSU100I11 SQ-INSULIN; +LISI-167 PO; +METO25TA91 PO; +ONDA4VIA8 IVPush
--- NOTE | 2018-11-10 10:24 | NUR ---
PT RETURNED FROM RADIOLOGY. BLOOD CULTURES x 2 DRAWN. PT VSS. PT DENIES ANY NEEDS OR COMPLANITS AT THIS TIME.
[2018-11-10 10:25] LABS: MEAN CORPUSCULAR HEMOGLOBIN 28.9 pg (27.0-34.8); MEAN CORPUSCULAR VOLUME 87.5 fL (80-100); MEAN PLATELET VOLUME 7.3 fL (7.4-10.4); PLATELET COUNT 381 x10^3/uL (130-400); RED BLOOD COUNT 4.87 x10^6/uL (3.82-5.3); RED CELL DISTRIBUTION WIDTH 15.5 % (9.6-15.2)
[2018-11-10 10:29] LABS: MD YES
[2018-11-10 10:37] LABS: ALANINE AMINOTRANSFERASE 19 U/L (12-78); ALBUMIN 3.5 g/dL (3.4-5.0); ANION GAP 11 mmol/L (5-15); CALCIUM 8.8 mg/dL (8.5-10.1); CHLORIDE 100 mmol/L (98-107); CREATININE 1.22 mg/dL (0.55-1.02)
[2018-11-10 10:41] LABS: ALKALINE PHOSPHATASE 123 U/L (45-117); BILIRUBIN,TOTAL 0.9 mg/dL (0.2-1.0); TOTAL PROTEIN 7.9 g/dL (6.4-8.2); TROPONIN I 0.021 ng/mL (0.000-0.045)
[2018-11-10] MEDS ORDERED: APIX5TAB PO (10:42)
[2018-11-10] MEDS ORDERED: METF850T10 PO (10:42)
[2018-11-10 10:50] LABS: BAND#(MANUAL) 1.02 x10^3/uL; BANDS%(MANUAL) 3 % (0-7); LYMPH#(MANUAL) 0.68 x10^3/uL (1-3.4); LYMPHS% (MANUAL) 2 % (22-44); MONOS#(MANUAL) 1.02 x10^3/uL (0.3-2.7); MONOS% (MANUAL) 3 % (2-9); SEG#(MANUAL) 31.19 x10^3/uL (1.8-6.8); SEGS% (MANUAL) 92 % (42-75)
[2018-11-10 10:51] LABS: <PLATELET ESTIMATE> ADEQUATE; <PLT MORPHOLOGY> NORMAL PLT MORPH; ANISOCYTOSIS 1+
[2018-11-10] MEDS ORDERED: SODIUM CHLORIDE FLUSH 10ML SYR IVF ONE (11:00)
[2018-11-10] MEDS ORDERED: PIPERACILLIN/TAZO/PMX 3.375GM 50 ML IVPB ONE (11:00)
[2018-11-10] MEDS ORDERED: SODIUM CHLORIDE 0.9% 1,000ML IVBOLUS ONE (11:00)
[2018-11-10] MEDS ORDERED: VANCOMYCIN 2,000 MG in SODIUM CHLORIDE 0.9% 500 ML IV ONE (11:00)
[2018-11-10] MEDS ORDERED: VANCOMYCIN PER PHARMACY IV ONE (11:00)
[2018-11-10 11:08] LABS: ACETONE, SERUM Negative (Negative)
--- NOTE | 2018-11-10 11:15 | NUR ---
PT INCONTINENT OF URINE, PT CLEANED AND LINENS CHANGED. PT REQUESTING ADDITIONAL PILLOW FOR ULCER TO SACRUM. PT GIVEN ADDITIONAL PILLOW. PT MEDICATED PER JAN. VSS. PT UPDATED ON POC TO BE ADMITTED FOR FURTHER EVALUATION AND TREATMENT.
[2018-11-10] MEDS ORDERED: SODIUM CHLORIDE FLUSH 10ML SYR IVF PRN (12:00)
--- NOTE | 2018-11-10 12:03 | NUR ---
[facility] REPORT CALLED TO FLOOR RN.
[2018-11-10] MEDS: FAMOTIDINE 20 MG TABLET PO SCH (12:30)
[2018-11-10] MEDS ORDERED: HYDROcodone/APAP 5/325 TABLET PO PRN (12:30)
[2018-11-10] MEDS ORDERED: LABETALOL 5MG/ML, 20ML IVPush PRN (12:30)
[2018-11-10] MEDS ORDERED: ONDANSETRON ODT 4 MG PO PRN (12:30)
[2018-11-10] MEDS ORDERED: DEXTROSE 50%, 50ML SYRINGE IVPush PRN (12:30)
[2018-11-10] MEDS ORDERED: VANCOMYCIN PER PHARMACY MC PRN (12:30)
[2018-11-10] MEDS ORDERED: BISACODYL 10 MG SUPP PR SCH (12:30)
[2018-11-10] MEDS ORDERED: GLUCAGON 1 MG IM PRN (12:30)
[2018-11-10] MEDS ORDERED: INSULIN REGULAR 100 UNITS/ML, 3ML VIAL IVPush ONE (12:30)
[2018-11-10] MEDS ORDERED: LIDODERM 5% PATCH TD PRN (12:30)
[2018-11-10] MEDS ORDERED: BISACODYL 10 MG SUPP PR PRN (12:30)
[2018-11-10] MEDS ORDERED: POTASSIUM CHLORIDE 20 MEQ in SODIUM CHLORIDE 0.9% 250 ML IV ONE (12:30)
[2018-11-10] MEDS ORDERED: ONDANSETRON 2MG/ML, 2ML IVPush PRN (12:30)
[2018-11-10] MEDS ORDERED: NITROGLYCERIN 0.4 MG BOTTLE (25 TABS) SL PRN (12:30)
[2018-11-10] MEDS ORDERED: hydrALAzine 20 MG/ML, 1ML IVPush PRN (12:30)
[2018-11-10] MEDS ORDERED: DEXTROSE 4 GM TAB.CHEW PO PRN (12:30)
[2018-11-10] MEDS ORDERED: MAALOX/HYOSCYAMINE/LIDOCAINE 45 ML BTL PO ONE (13:00)
[2018-11-10 13:25] LABS: MEAN CORPUSCULAR HEMOGLOBIN 28.3 pg (27.0-34.8); MEAN CORPUSCULAR HGB CONC 33.1 g/dL (32.4-35.8); MEAN CORPUSCULAR VOLUME 85.7 fL (80-100); MEAN PLATELET VOLUME 7.1 fL (7.4-10.4); PLATELET COUNT 328 x10^3/uL (130-400); RED BLOOD COUNT 4.58 x10^6/uL (3.82-5.3); RED CELL DISTRIBUTION WIDTH 14.9 % (9.6-15.2)
[2018-11-10] MEDS ORDERED: PHARMACOKINETIC MONITORING MC PRN (13:30)
[2018-11-10] MEDS ORDERED: PHARMACOKINETIC CONSULTATION MC ONE (13:30)
[2018-11-10 13:31] LABS: HCT (SEDRATE) 39.3 % (34.6-47.8)
[2018-11-10 13:34] LABS: ANION GAP 8 mmol/L (5-15); CALCIUM 8.5 mg/dL (8.5-10.1); CHLORIDE 103 mmol/L (98-107); CREATININE 1.03 mg/dL (0.55-1.02)
[2018-11-10 13:38] LABS: TROPONIN I 0.031 ng/mL (0.000-0.045)
[2018-11-10 13:39] LABS: BASOPHILS % (AUTO) 0 % (0-1); EOSINOPHILS # (AUTO) 0.01 x10^3/uL (0-0.4); EOSINOPHILS % (AUTO) 0 % (1-7); LYMPHOCYTES # (AUTO) 1.17 x10^3/uL (1-3.4); LYMPHOCYTES % (AUTO) 5 % (22-44); MD SCAN; MONOCYTES # (AUTO) 0.16 x10^3/uL (0.2-0.8); MONOCYTES % (AUTO) 1 % (2-9); NEUTROPHILS % (AUTO) 95 % (42-75)
[2018-11-10] MEDS ORDERED: MAGNESIUM SULFATE PMX 2GM/50ML 50 ML IV ONE ×2 (14:30→16:30)
[2018-11-10] MEDS: PIPERACILLIN/TAZO/PMX 4.5GM 100 ML IV SCH ×2 (15:00→20:52)
[2018-11-10 15:18] VITALS: BP 108/62
[2018-11-10] MEDS: METOPROLOL SUCCINATE 25 MG TAB.ER.24H PO SCH (16:58)
[2018-11-10] MEDS: INSULIN LISPRO 100 UNITS/ML, PEN SQ-INSULIN SCH ×2 (16:59→21:13)
[2018-11-10 17:31] LABS: TROPONIN I 0.032 ng/mL (0.000-0.045)
[2018-11-10 20:00] VITALS: BP 90/55
[2018-11-10] MEDS: ATORVASTATIN 80 MG TABLET PO SCH (20:52)
[2018-11-10] MEDS: APIXABAN 5 MG TABLET PO SCH (20:52)
[2018-11-10] MEDS: SODIUM CHLORIDE FLUSH 10ML SYR IVF SCH (20:52)
[2018-11-10] MEDS: INSULIN GLARGINE 100 UNITS/ML, PEN SQ-INSULIN SCH (21:12)
[2018-11-10] MEDS: DOCUSATE 100 MG CAPSULE PO PRN (21:12)
[2018-11-11 02:00] VITALS: BP 108/59
[2018-11-11] MEDS: PIPERACILLIN/TAZO/PMX 4.5GM 100 ML IV SCH ×4 (03:27→20:44)
[2018-11-11] MEDS: ASPIRIN 81 MG TABLET EC PO SCH (05:51)
[2018-11-11 05:57] LABS: BASOPHILS # (AUTO) 0.02 x10^3/uL (0-0.1); BASOPHILS % (AUTO) 0 % (0-1); EOSINOPHILS # (AUTO) 0.48 x10^3/uL (0-0.4); EOSINOPHILS % (AUTO) 3 % (1-7); LYMPHOCYTES # (AUTO) 1.68 x10^3/uL (1-3.4); LYMPHOCYTES % (AUTO) 11 % (22-44); MD NO; MEAN CORPUSCULAR HEMOGLOBIN 28.9 pg (27.0-34.8); MEAN CORPUSCULAR HGB CONC 33.7 g/dL (32.4-35.8); MEAN CORPUSCULAR VOLUME 85.7 fL (80-100); MEAN PLATELET VOLUME 7.2 fL (7.4-10.4); MONOCYTES # (AUTO) 0.61 x10^3/uL (0.2-0.8); MONOCYTES % (AUTO) 4 % (2-9); NEUTROPHILS % (AUTO) 83 % (42-75); PLATELET COUNT 283 x10^3/uL (130-400); RED BLOOD COUNT 4.19 x10^6/uL (3.82-5.3); RED CELL DISTRIBUTION WIDTH 15.3 % (9.6-15.2)
[2018-11-11 06:17] LABS: ALANINE AMINOTRANSFERASE 15 U/L (12-78); ALBUMIN 2.4 g/dL (3.4-5.0); ANION GAP 11 mmol/L (5-15); CALCIUM 7.9 mg/dL (8.5-10.1); CHLORIDE 109 mmol/L (98-107); CREATININE 0.72 mg/dL (0.55-1.02)
[2018-11-11 06:20] LABS: ALKALINE PHOSPHATASE 94 U/L (45-117); BILIRUBIN,TOTAL 1.2 mg/dL (0.2-1.0); TOTAL PROTEIN 6.2 g/dL (6.4-8.2)
[2018-11-11] MEDS: INSULIN LISPRO 100 UNITS/ML, PEN SQ-INSULIN SCH ×4 (07:00→21:20)
[2018-11-11 07:24] VITALS: BP 109/67
[2018-11-11] MEDS: FAMOTIDINE 20 MG TABLET PO SCH (08:52)
[2018-11-11] MEDS: APIXABAN 5 MG TABLET PO SCH ×2 (08:52→20:45)
[2018-11-11] MEDS: CLOPIDOGREL 75 MG TABLET PO SCH (08:52)
[2018-11-11] MEDS: AMIODARONE 200 MG TABLET PO SCH (08:52)
[2018-11-11] MEDS: ACETAMINOPHEN 325 MG TABLET PO PRN (09:07)
[2018-11-11] MEDS: SODIUM CHLORIDE FLUSH 10ML SYR IVF SCH ×2 (09:08→20:45)
[2018-11-11] MEDS ORDERED: MAGNESIUM SULFATE PMX 2GM/50ML 50 ML IV ONE (09:30)
[2018-11-11 10:11] LABS: CULTURE INDICATED? YES; MICROSCOPIC INDICATED
[2018-11-11 12:23] VITALS: BP 108/45
[2018-11-11] MEDS: ACETAMINOPHEN 500 MG TABLET PO SCH ×2 (15:47→20:44)
[2018-11-11] MEDS: METOPROLOL SUCCINATE 25 MG TAB.ER.24H PO SCH (17:20)
[2018-11-11 20:00] VITALS: BP 126/63
[2018-11-11] MEDS: ATORVASTATIN 80 MG TABLET PO SCH (20:44)
[2018-11-11] MEDS ORDERED: metFORMIN 850 MG TABLET PO SCH (21:00)
[2018-11-11] MEDS: INSULIN GLARGINE 100 UNITS/ML, PEN SQ-INSULIN SCH (21:17)
[2018-11-11] MEDS ORDERED: VANCOMYCIN 2,000 MG in SODIUM CHLORIDE 0.9% 500 ML IV SCH (23:00)
[2018-11-12 02:00] VITALS: BP 134/63
[2018-11-12] MEDS: ACETAMINOPHEN 500 MG TABLET PO SCH ×4 (03:21→20:53)
[2018-11-12] MEDS: PIPERACILLIN/TAZO/PMX 4.5GM 100 ML IV SCH ×4 (03:22→23:50)
[2018-11-12] MEDS: ASPIRIN 81 MG TABLET EC PO SCH (05:50)
[2018-11-12 06:06] LABS: MEAN CORPUSCULAR HEMOGLOBIN 28.7 pg (27.0-34.8); MEAN CORPUSCULAR HGB CONC 33.4 g/dL (32.4-35.8); MEAN CORPUSCULAR VOLUME 86.1 fL (80-100); MEAN PLATELET VOLUME 7.2 fL (7.4-10.4); PLATELET COUNT 279 x10^3/uL (130-400); RED BLOOD COUNT 3.89 x10^6/uL (3.82-5.3); RED CELL DISTRIBUTION WIDTH 15.1 % (9.6-15.2)
[2018-11-12 06:18] LABS: ALBUMIN 2.3 g/dL (3.4-5.0); ANION GAP 8 mmol/L (5-15); CALCIUM 7.6 mg/dL (8.5-10.1); CHLORIDE 110 mmol/L (98-107)
[2018-11-12 06:22] LABS: ALANINE AMINOTRANSFERASE 68 U/L (12-78); ALKALINE PHOSPHATASE 257 U/L (45-117); BILIRUBIN,TOTAL 0.8 mg/dL (0.2-1.0); CREATININE 0.78 mg/dL (0.55-1.02)
[2018-11-12 06:28] VITALS: BP 120/60
[2018-11-12 06:38] LABS: BASOPHILS # (AUTO) 0.02 x10^3/uL (0-0.1); BASOPHILS % (AUTO) 0 % (0-1); EOSINOPHILS # (AUTO) 0.08 x10^3/uL (0-0.4); EOSINOPHILS % (AUTO) 1 % (1-7); LYMPHOCYTES # (AUTO) 2.29 x10^3/uL (1-3.4); LYMPHOCYTES % (AUTO) 18 % (22-44); MD SCAN; MONOCYTES # (AUTO) 0.62 x10^3/uL (0.2-0.8); MONOCYTES % (AUTO) 5 % (2-9); NEUTROPHILS # (AUTO) 9.58 x10^3/uL (1.8-6.8); NEUTROPHILS % (AUTO) 76 % (42-75)
[2018-11-12] MEDS: INSULIN LISPRO 100 UNITS/ML, PEN SQ-INSULIN SCH ×4 (07:00→20:55)
[2018-11-12] MEDS: SODIUM CHLORIDE FLUSH 10ML SYR IVF SCH ×2 (11:56→20:53)
[2018-11-12] MEDS: CLOPIDOGREL 75 MG TABLET PO SCH (12:14)
[2018-11-12] MEDS: AMIODARONE 200 MG TABLET PO SCH (12:14)
[2018-11-12] MEDS: FAMOTIDINE 20 MG TABLET PO SCH (12:14)
[2018-11-12] MEDS: APIXABAN 5 MG TABLET PO SCH ×2 (12:14→20:53)
[2018-11-12 12:15] VITALS: BP 146/68
[2018-11-12] MEDS ORDERED: OMNIPAQUE 350 MG/ML, 100ML BOTTLE ONE (12:35)
[2018-11-12] MEDS: METOPROLOL SUCCINATE 25 MG TAB.ER.24H PO SCH (17:46)
[2018-11-12 20:00] VITALS: BP 145/66
[2018-11-12] MEDS: ATORVASTATIN 80 MG TABLET PO SCH (20:53)
[2018-11-12] MEDS: INSULIN GLARGINE 100 UNITS/ML, PEN SQ-INSULIN SCH (20:55)
[2018-11-13 02:00] VITALS: BP 147/70
[2018-11-13] MEDS: ACETAMINOPHEN 500 MG TABLET PO SCH ×2 (03:50→08:40)
[2018-11-13 04:55] LABS: BASOPHILS # (AUTO) 0.04 x10^3/uL (0-0.1); BASOPHILS % (AUTO) 0 % (0-1); EOSINOPHILS # (AUTO) 0.07 x10^3/uL (0-0.4); EOSINOPHILS % (AUTO) 1 % (1-7); LYMPHOCYTES # (AUTO) 1.69 x10^3/uL (1-3.4); LYMPHOCYTES % (AUTO) 14 % (22-44); MD NO; MEAN CORPUSCULAR HGB CONC 32.5 g/dL (32.4-35.8); MEAN CORPUSCULAR VOLUME 86.2 fL (80-100); MEAN PLATELET VOLUME 7.4 fL (7.4-10.4); MONOCYTES # (AUTO) 0.83 x10^3/uL (0.2-0.8); MONOCYTES % (AUTO) 7 % (2-9); NEUTROPHILS # (AUTO) 9.36 x10^3/uL (1.8-6.8); NEUTROPHILS % (AUTO) 78 % (42-75); PLATELET COUNT 274 x10^3/uL (130-400); RED BLOOD COUNT 4.16 x10^6/uL (3.82-5.3); RED CELL DISTRIBUTION WIDTH 15.3 % (9.6-15.2)
[2018-11-13 05:06] LABS: ALBUMIN 2.4 g/dL (3.4-5.0); ANION GAP 7 mmol/L (5-15); CALCIUM 8.1 mg/dL (8.5-10.1); CHLORIDE 107 mmol/L (98-107)
[2018-11-13 05:13] LABS: ALANINE AMINOTRANSFERASE 47 U/L (12-78); ALKALINE PHOSPHATASE 218 U/L (45-117); BILIRUBIN,TOTAL 0.9 mg/dL (0.2-1.0); TOTAL PROTEIN 6.6 g/dL (6.4-8.2)
[2018-11-13] MEDS: ASPIRIN 81 MG TABLET EC PO SCH (05:59)
[2018-11-13] MEDS: PIPERACILLIN/TAZO/PMX 4.5GM 100 ML IV SCH (05:59)
[2018-11-13 06:31] VITALS: BP 152/64
[2018-11-13] MEDS: INSULIN LISPRO 100 UNITS/ML, PEN SQ-INSULIN SCH ×4 (07:00→21:27)
[2018-11-13] MEDS ORDERED: LORazepam 2 MG/ML, 1ML IVPush PRN (08:00)
[2018-11-13] MEDS: CLOPIDOGREL 75 MG TABLET PO SCH (08:40)
[2018-11-13] MEDS: SODIUM CHLORIDE FLUSH 10ML SYR IVF SCH ×2 (08:40→21:27)
[2018-11-13] MEDS: AMIODARONE 200 MG TABLET PO SCH (08:40)
[2018-11-13] MEDS: APIXABAN 5 MG TABLET PO SCH (08:40)
[2018-11-13] MEDS: FAMOTIDINE 20 MG TABLET PO SCH (08:40)
[2018-11-13] MEDS: ERTAPENEM 1 GM in SODIUM CHLORIDE 0.9% 50 ML IV SCH (11:52)
[2018-11-13 13:18] VITALS: BP 153/61
[2018-11-13] MEDS: METOPROLOL SUCCINATE 25 MG TAB.ER.24H PO SCH (17:51)
[2018-11-13 20:00] VITALS: BP 165/73
[2018-11-13] MEDS: ATORVASTATIN 80 MG TABLET PO SCH (21:26)
[2018-11-13] MEDS: INSULIN GLARGINE 100 UNITS/ML, PEN SQ-INSULIN SCH (21:27)
[2018-11-14 02:00] VITALS: BP 154/62
[2018-11-14 05:56] LABS: BASOPHILS % (AUTO) 0 % (0-1); EOSINOPHILS # (AUTO) 0.23 x10^3/uL (0-0.4); EOSINOPHILS % (AUTO) 2 % (1-7); LYMPHOCYTES # (AUTO) 2.57 x10^3/uL (1-3.4); LYMPHOCYTES % (AUTO) 23 % (22-44); MD NO; MEAN CORPUSCULAR HEMOGLOBIN 28.7 pg (27.0-34.8); MEAN CORPUSCULAR HGB CONC 33.6 g/dL (32.4-35.8); MEAN CORPUSCULAR VOLUME 85.5 fL (80-100); MEAN PLATELET VOLUME 7.5 fL (7.4-10.4); MONOCYTES # (AUTO) 0.94 x10^3/uL (0.2-0.8); MONOCYTES % (AUTO) 8 % (2-9); NEUTROPHILS # (AUTO) 7.45 x10^3/uL (1.8-6.8); NEUTROPHILS % (AUTO) 67 % (42-75); PLATELET COUNT 294 x10^3/uL (130-400); RED BLOOD COUNT 4.26 x10^6/uL (3.82-5.3); RED CELL DISTRIBUTION WIDTH 15.2 % (9.6-15.2)
[2018-11-14 06:08] LABS: CHLORIDE 104 mmol/L (98-107)
[2018-11-14 06:16] LABS: ALANINE AMINOTRANSFERASE 33 U/L (12-78); ALBUMIN 2.4 g/dL (3.4-5.0); ALKALINE PHOSPHATASE 205 U/L (45-117); ANION GAP 7 mmol/L (5-15); BILIRUBIN,TOTAL 0.7 mg/dL (0.2-1.0); CALCIUM 9.3 mg/dL (8.5-10.1); CREATININE 0.71 mg/dL (0.55-1.02); TOTAL PROTEIN 6.9 g/dL (6.4-8.2)
[2018-11-14 07:18] VITALS: BP 156/65
[2018-11-14] MEDS: INSULIN LISPRO 100 UNITS/ML, PEN SQ-INSULIN SCH ×4 (07:47→20:59)
[2018-11-14] MEDS: AMIODARONE 200 MG TABLET PO SCH (09:10)
[2018-11-14] MEDS: SODIUM CHLORIDE FLUSH 10ML SYR IVF SCH ×2 (09:10→21:00)
[2018-11-14] MEDS: FAMOTIDINE 20 MG TABLET PO SCH (09:10)
[2018-11-14] MEDS: ERTAPENEM 1 GM in SODIUM CHLORIDE 0.9% 50 ML IV SCH (11:47)
[2018-11-14 14:51] VITALS: BP 151/68
[2018-11-14 17:03] VITALS: BP 146/67
[2018-11-14] MEDS: METOPROLOL SUCCINATE 25 MG TAB.ER.24H PO SCH (17:04)
[2018-11-14 20:02] VITALS: BP 137/74
[2018-11-14] MEDS: ATORVASTATIN 80 MG TABLET PO SCH (20:57)
[2018-11-14] MEDS: INSULIN GLARGINE 100 UNITS/ML, PEN SQ-INSULIN SCH (20:59)
[2018-11-15 00:29] VITALS: BP 158/78
[2018-11-15 07:16] VITALS: BP 152/76
[2018-11-15 07:58] LABS: MEAN CORPUSCULAR HEMOGLOBIN 28.1 pg (27.0-34.8); MEAN CORPUSCULAR HGB CONC 32.8 g/dL (32.4-35.8); MEAN CORPUSCULAR VOLUME 85.8 fL (80-100); MEAN PLATELET VOLUME 7.2 fL (7.4-10.4); PLATELET COUNT 359 x10^3/uL (130-400); RED BLOOD COUNT 4.39 x10^6/uL (3.82-5.3); RED CELL DISTRIBUTION WIDTH 15.1 % (9.6-15.2)
[2018-11-15 08:10] LABS: ALANINE AMINOTRANSFERASE 30 U/L (12-78); ALBUMIN 2.6 g/dL (3.4-5.0); ANION GAP 8 mmol/L (5-15); CHLORIDE 106 mmol/L (98-107); CREATININE 0.66 mg/dL (0.55-1.02)
[2018-11-15 08:13] LABS: ALKALINE PHOSPHATASE 193 U/L (45-117); BILIRUBIN,TOTAL 0.5 mg/dL (0.2-1.0); TOTAL PROTEIN 7.4 g/dL (6.4-8.2)
[2018-11-15 09:04] LABS: MD YES
[2018-11-15 09:05] LABS: EOS#(MANUAL) 0.27 x10^3/uL (0.0-0.4); EOS% (MANUAL) 2 % (1-7); MONOS#(MANUAL) 0.68 x10^3/uL (0.3-2.7); MONOS% (MANUAL) 5 % (2-9)
[2018-11-15 09:06] LABS: LYMPH#(MANUAL) 2.99 x10^3/uL (1-3.4); LYMPHS% (MANUAL) 22 % (22-44); SEG#(MANUAL) 9.66 x10^3/uL (1.8-6.8); SEGS% (MANUAL) 71 % (42-75)
[2018-11-15 09:07] LABS: <PLATELET ESTIMATE> ADEQUATE; <PLT MORPHOLOGY> NORMAL PLT MORPH; <RBC MORPHOLOGY> NORMAL
[2018-11-15] MEDS: SODIUM CHLORIDE FLUSH 10ML SYR IVF SCH (10:23)
[2018-11-15] MEDS: INSULIN LISPRO 100 UNITS/ML, PEN SQ-INSULIN SCH ×4 (10:23→22:04)
[2018-11-15] MEDS ORDERED: FENTANYL PF 100 MCG/2ML ONE (10:26)
[2018-11-15] MEDS ORDERED: PROPOFOL 10 MG/ML, 20ML ONE (10:28)
[2018-11-15] MEDS ORDERED: SUCCINYLCHOLINE 20 MG/ML, 10ML ONE (10:28)
[2018-11-15] MEDS ORDERED: PHENYLEPHRINE 10 MG/ML ONE (10:28)
[2018-11-15] MEDS ORDERED: DEXAMETHASONE 4 MG/ML, 1ML ONE (10:28)
[2018-11-15] MEDS ORDERED: ONDANSETRON 2MG/ML, 2ML ONE (10:28)
[2018-11-15] MEDS ORDERED: OMNIPAQUE 350 MG/ML, 50 ML BOTTLE ONE (11:07)
[2018-11-15] MEDS ORDERED: METOPROLOL 1 MG/ML, 5ML IV PRN (11:30)
[2018-11-15] MEDS ORDERED: ONDANSETRON 2MG/ML, 2ML IV PRN (11:30)
[2018-11-15] MEDS ORDERED: ALBUTEROL/IPRATROPIUM 2.5MG/0.5MG, 3 ML NPPB PRN (11:30)
[2018-11-15] MEDS ORDERED: OXYcodone 5 MG/5 ML ORAL.SOL UDC PO PRN (11:30)
[2018-11-15] MEDS ORDERED: hydrALAzine 20 MG/ML, 1ML IV PRN (11:30)
[2018-11-15] MEDS ORDERED: FENTANYL PF 100 MCG/2ML IV PRN (11:30)
[2018-11-15] MEDS ORDERED: PROMETHAZINE 25 MG/ML, 1ML IV PRN (11:30)
[2018-11-15] MEDS ORDERED: MIDAZOLAM 1 MG/ML, 2ML IV PRN (11:30)
[2018-11-15] MEDS: FAMOTIDINE 20 MG TABLET PO SCH (13:34)
[2018-11-15] MEDS: DOCUSATE 100 MG CAPSULE PO PRN (13:34)
[2018-11-15] MEDS: ERTAPENEM 1 GM in SODIUM CHLORIDE 0.9% 50 ML IV SCH (13:34)
[2018-11-15] MEDS: AMIODARONE 200 MG TABLET PO SCH (13:35)
[2018-11-15 13:48] VITALS: BP 149/72
[2018-11-15] MEDS: ACETAMINOPHEN 325 MG TABLET PO PRN (18:12)
[2018-11-15] MEDS: METOPROLOL SUCCINATE 25 MG TAB.ER.24H PO SCH (18:13)
[2018-11-15 18:14] VITALS: BP 115/52
[2018-11-15 19:40] VITALS: BP 115/69
[2018-11-15] MEDS: ATORVASTATIN 80 MG TABLET PO SCH (22:03)
[2018-11-15] MEDS: INSULIN GLARGINE 100 UNITS/ML, PEN SQ-INSULIN SCH (22:04)
[2018-11-16 01:21] VITALS: BP 139/66
[2018-11-16] MEDS: SODIUM CHLORIDE FLUSH 10ML SYR IVF SCH ×3 (03:41→21:00)
[2018-11-16 07:51] VITALS: BP 134/69
[2018-11-16 08:04] LABS: BASOPHILS # (AUTO) 0.03 x10^3/uL (0-0.1); BASOPHILS % (AUTO) 0 % (0-1); EOSINOPHILS # (AUTO) 0.02 x10^3/uL (0-0.4); EOSINOPHILS % (AUTO) 0 % (1-7); LYMPHOCYTES # (AUTO) 2.82 x10^3/uL (1-3.4); LYMPHOCYTES % (AUTO) 18 % (22-44); MD NO; MEAN CORPUSCULAR HGB CONC 32.4 g/dL (32.4-35.8); MEAN CORPUSCULAR VOLUME 86.4 fL (80-100); MEAN PLATELET VOLUME 7.3 fL (7.4-10.4); MONOCYTES # (AUTO) 1.01 x10^3/uL (0.2-0.8); MONOCYTES % (AUTO) 6 % (2-9); NEUTROPHILS # (AUTO) 11.78 x10^3/uL (1.8-6.8); NEUTROPHILS % (AUTO) 75 % (42-75); PLATELET COUNT 395 x10^3/uL (130-400); RED BLOOD COUNT 4.48 x10^6/uL (3.82-5.3); RED CELL DISTRIBUTION WIDTH 14.9 % (9.6-15.2)
[2018-11-16 08:15] LABS: ALANINE AMINOTRANSFERASE 25 U/L (12-78); ALBUMIN 2.6 g/dL (3.4-5.0); ANION GAP 9 mmol/L (5-15); CALCIUM 9.1 mg/dL (8.5-10.1); CHLORIDE 104 mmol/L (98-107)
[2018-11-16 08:18] LABS: ALKALINE PHOSPHATASE 190 U/L (45-117); BILIRUBIN,TOTAL 0.3 mg/dL (0.2-1.0); CREATININE 0.84 mg/dL (0.55-1.02); TOTAL PROTEIN 7.3 g/dL (6.4-8.2)
[2018-11-16] MEDS: AMIODARONE 200 MG TABLET PO SCH (08:51)
[2018-11-16] MEDS: FAMOTIDINE 20 MG TABLET PO SCH (08:51)
[2018-11-16] MEDS: INSULIN LISPRO 100 UNITS/ML, PEN SQ-INSULIN SCH ×4 (08:52→20:23)
[2018-11-16 09:12] LABS: MICROSCOPIC INDICATED
[2018-11-16] MEDS: ERTAPENEM 1 GM in SODIUM CHLORIDE 0.9% 50 ML IV SCH (12:24)
[2018-11-16 14:15] VITALS: BP 129/64
[2018-11-16 17:36] VITALS: BP 125/53
[2018-11-16] MEDS: ACETAMINOPHEN 325 MG TABLET PO PRN (17:37)
[2018-11-16] MEDS: METOPROLOL SUCCINATE 25 MG TAB.ER.24H PO SCH (17:37)
[2018-11-16 19:50] VITALS: BP 114/72
[2018-11-16] MEDS: ATORVASTATIN 80 MG TABLET PO SCH (20:23)
[2018-11-16] MEDS: INSULIN GLARGINE 100 UNITS/ML, PEN SQ-INSULIN SCH (20:24)
[2018-11-17 01:17] VITALS: BP 146/74
[2018-11-17 08:06] LABS: BASOPHILS # (AUTO) 0.06 x10^3/uL (0-0.1); BASOPHILS % (AUTO) 1 % (0-1); EOSINOPHILS # (AUTO) 0.14 x10^3/uL (0-0.4); EOSINOPHILS % (AUTO) 1 % (1-7); LYMPHOCYTES # (AUTO) 3.29 x10^3/uL (1-3.4); LYMPHOCYTES % (AUTO) 26 % (22-44); MD NO; MEAN CORPUSCULAR HEMOGLOBIN 28.5 pg (27.0-34.8); MEAN CORPUSCULAR HGB CONC 33.1 g/dL (32.4-35.8); MEAN CORPUSCULAR VOLUME 86.2 fL (80-100); MONOCYTES # (AUTO) 1.04 x10^3/uL (0.2-0.8); MONOCYTES % (AUTO) 8 % (2-9); NEUTROPHILS # (AUTO) 8.24 x10^3/uL (1.8-6.8); NEUTROPHILS % (AUTO) 65 % (42-75); PLATELET COUNT 439 x10^3/uL (130-400); RED BLOOD COUNT 4.34 x10^6/uL (3.82-5.3)
[2018-11-17 08:09] VITALS: BP 138/62
[2018-11-17 08:17] LABS: ANION GAP 6 mmol/L (5-15); CALCIUM 8.9 mg/dL (8.5-10.1); CHLORIDE 107 mmol/L (98-107)
[2018-11-17 08:25] LABS: CREATININE 0.77 mg/dL (0.55-1.02)
[2018-11-17] MEDS: FAMOTIDINE 20 MG TABLET PO SCH (09:39)
[2018-11-17] MEDS: AMIODARONE 200 MG TABLET PO SCH (09:39)
[2018-11-17] MEDS: DOCUSATE 100 MG CAPSULE PO PRN (09:39)
[2018-11-17] MEDS: INSULIN LISPRO 100 UNITS/ML, PEN SQ-INSULIN SCH ×4 (09:40→21:55)
[2018-11-17] MEDS: SODIUM CHLORIDE FLUSH 10ML SYR IVF SCH ×2 (09:40→20:29)
[2018-11-17] MEDS: POLYETHYLENE GLYCOL 17 GM PACKET PO PRN (09:40)
[2018-11-17] MEDS: ERTAPENEM 1 GM in SODIUM CHLORIDE 0.9% 50 ML IV SCH (13:34)
[2018-11-17 13:53] VITALS: BP 117/69
[2018-11-17] MEDS: METOPROLOL SUCCINATE 25 MG TAB.ER.24H PO SCH (17:49)
[2018-11-17 17:51] VITALS: BP 145/69
[2018-11-17 20:00] VITALS: BP 133/54
[2018-11-17] MEDS: ATORVASTATIN 80 MG TABLET PO SCH (20:28)
[2018-11-17] MEDS: INSULIN GLARGINE 100 UNITS/ML, PEN SQ-INSULIN SCH (21:56)
[2018-11-18 02:00] VITALS: BP 156/88
[2018-11-18 06:43] VITALS: BP 145/73
[2018-11-18] MEDS: INSULIN LISPRO 100 UNITS/ML, PEN SQ-INSULIN SCH ×4 (07:00→20:42)
[2018-11-18] MEDS: AMIODARONE 200 MG TABLET PO SCH (08:55)
[2018-11-18] MEDS: SODIUM CHLORIDE FLUSH 10ML SYR IVF SCH ×2 (08:55→20:31)
[2018-11-18] MEDS: FAMOTIDINE 20 MG TABLET PO SCH (08:55)
[2018-11-18] MEDS: POLYETHYLENE GLYCOL 17 GM PACKET PO PRN (08:55)
[2018-11-18] MEDS: ERTAPENEM 1 GM in SODIUM CHLORIDE 0.9% 50 ML IV SCH (10:43)
[2018-11-18 13:15] VITALS: BP 137/76
[2018-11-18] MEDS: METOPROLOL SUCCINATE 25 MG TAB.ER.24H PO SCH (17:57)
[2018-11-18 19:48] VITALS: BP 128/60
[2018-11-18] MEDS: ATORVASTATIN 80 MG TABLET PO SCH (20:31)
[2018-11-18] MEDS: INSULIN GLARGINE 100 UNITS/ML, PEN SQ-INSULIN SCH (20:41)
[2018-11-19] MEDS: ACETAMINOPHEN 325 MG TABLET PO PRN (00:49)
[2018-11-19 01:59] VITALS: BP 148/65
[2018-11-19 06:51] VITALS: BP 149/73
[2018-11-19] MEDS: INSULIN LISPRO 100 UNITS/ML, PEN SQ-INSULIN SCH ×4 (07:00→20:35)
[2018-11-19] MEDS: FAMOTIDINE 20 MG TABLET PO SCH (08:52)
[2018-11-19] MEDS: AMIODARONE 200 MG TABLET PO SCH (08:52)
[2018-11-19] MEDS: ASPIRIN 81 MG TABLET EC PO SCH (08:53)
[2018-11-19] MEDS: SODIUM CHLORIDE FLUSH 10ML SYR IVF SCH ×2 (08:53→20:29)
[2018-11-19] MEDS: ERTAPENEM 1 GM in SODIUM CHLORIDE 0.9% 50 ML IV SCH (11:57)
[2018-11-19 14:31] VITALS: BP 139/78
[2018-11-19] MEDS: METOPROLOL SUCCINATE 25 MG TAB.ER.24H PO SCH (17:17)
[2018-11-19 20:00] VITALS: BP 134/60
[2018-11-19] MEDS: ATORVASTATIN 80 MG TABLET PO SCH (20:29)
[2018-11-19] MEDS: INSULIN GLARGINE 100 UNITS/ML, PEN SQ-INSULIN SCH (20:35)
[2018-11-20 02:00] VITALS: BP 129/70
[2018-11-20] MEDS: INSULIN LISPRO 100 UNITS/ML, PEN SQ-INSULIN SCH ×4 (07:00→20:36)
[2018-11-20 07:45] VITALS: BP 135/69
[2018-11-20] MEDS: AMIODARONE 200 MG TABLET PO SCH (08:07)
[2018-11-20] MEDS: FAMOTIDINE 20 MG TABLET PO SCH (08:07)
[2018-11-20] MEDS: ASPIRIN 81 MG TABLET EC PO SCH (08:07)
[2018-11-20] MEDS: SODIUM CHLORIDE FLUSH 10ML SYR IVF SCH ×2 (08:08→20:37)
[2018-11-20] MEDS: ERTAPENEM 1 GM in SODIUM CHLORIDE 0.9% 50 ML IV SCH (11:23)
[2018-11-20 13:52] VITALS: BP 122/80
[2018-11-20] MEDS: METOPROLOL SUCCINATE 25 MG TAB.ER.24H PO SCH (18:00)
[2018-11-20 19:34] VITALS: BP 117/53
[2018-11-20] MEDS: ATORVASTATIN 80 MG TABLET PO SCH (20:35)
[2018-11-20] MEDS: INSULIN GLARGINE 100 UNITS/ML, PEN SQ-INSULIN SCH (20:37)
[2018-11-21 02:18] VITALS: BP 108/54
[2018-11-21 07:30] VITALS: BP 132/64
[2018-11-21] MEDS: AMIODARONE 200 MG TABLET PO SCH (09:17)
[2018-11-21] MEDS: FAMOTIDINE 20 MG TABLET PO SCH (09:17)
[2018-11-21] MEDS: SODIUM CHLORIDE FLUSH 10ML SYR IVF SCH ×2 (09:19→20:36)
[2018-11-21] MEDS: INSULIN LISPRO 100 UNITS/ML, PEN SQ-INSULIN SCH ×4 (09:19→20:34)
[2018-11-21] MEDS ORDERED: MISOPROSTOL 200 MCG TABLET ONE (11:43)
[2018-11-21] MEDS ORDERED: OXYTOCIN 10 UNITS/ML, 1ML ONE (11:43)
[2018-11-21] MEDS ORDERED: SILVER NITRATE STICK TP ONE (11:44)
[2018-11-21] MEDS ORDERED: METHYLERGONOVINE 0.2 MG/ML IM ONE (11:44)
[2018-11-21] MEDS ORDERED: FENTANYL PF 100 MCG/2ML ONE (11:52)
[2018-11-21] MEDS ORDERED: MIDAZOLAM 1 MG/ML, 2ML ONE (11:52)
[2018-11-21] MEDS ORDERED: ACETAMINOPHEN 325 MG TABLET PO PRN (12:30)
[2018-11-21] MEDS ORDERED: ALBUTEROL/IPRATROPIUM 2.5MG/0.5MG, 3 ML NPPB PRN (12:30)
[2018-11-21] MEDS ORDERED: ONDANSETRON 2MG/ML, 2ML ONE (12:30)
[2018-11-21] MEDS ORDERED: MIDAZOLAM 1 MG/ML, 2ML IV PRN (12:30)
[2018-11-21] MEDS ORDERED: hydrALAzine 20 MG/ML, 1ML IV PRN (12:30)
[2018-11-21] MEDS ORDERED: OXYcodone 5 MG/5 ML ORAL.SOL UDC PO PRN (12:30)
[2018-11-21] MEDS ORDERED: DEXAMETHASONE 4 MG/ML, 1ML ONE (12:30)
[2018-11-21] MEDS ORDERED: PROPOFOL 10 MG/ML, 20ML ONE (12:30)
[2018-11-21] MEDS ORDERED: FENTANYL PF 100 MCG/2ML IV PRN (12:30)
[2018-11-21] MEDS ORDERED: CEFAZOLIN 1,000 MG ONE (12:30)
[2018-11-21] MEDS ORDERED: ONDANSETRON 2MG/ML, 2ML IV PRN (12:30)
[2018-11-21 14:40] VITALS: BP 114/61
[2018-11-21] MEDS: ERTAPENEM 1 GM in SODIUM CHLORIDE 0.9% 50 ML IV SCH (14:41)
[2018-11-21] MEDS: ASPIRIN 81 MG TABLET EC PO SCH (14:47)
[2018-11-21] MEDS ORDERED: PHENYLEPHRINE 10 MG/ML ONE (15:41)
[2018-11-21] MEDS: METOPROLOL SUCCINATE 25 MG TAB.ER.24H PO SCH (17:52)
[2018-11-21 19:46] VITALS: BP 111/68
[2018-11-21] MEDS: ATORVASTATIN 80 MG TABLET PO SCH (20:33)
[2018-11-21] MEDS: INSULIN GLARGINE 100 UNITS/ML, PEN SQ-INSULIN SCH (20:35)
[2018-11-22 00:14] VITALS: BP 125/76
[2018-11-22 04:49] VITALS: BP 126/57
[2018-11-22 05:39] LABS: BASOPHILS # (AUTO) 0.05 x10^3/uL (0-0.1); BASOPHILS % (AUTO) 0 % (0-1); EOSINOPHILS # (AUTO) 0.02 x10^3/uL (0-0.4); EOSINOPHILS % (AUTO) 0 % (1-7); LYMPHOCYTES # (AUTO) 1.93 x10^3/uL (1-3.4); LYMPHOCYTES % (AUTO) 14 % (22-44); MD NO; MEAN CORPUSCULAR HEMOGLOBIN 28.5 pg (27.0-34.8); MEAN CORPUSCULAR HGB CONC 33.5 g/dL (32.4-35.8); MEAN CORPUSCULAR VOLUME 85.3 fL (80-100); MEAN PLATELET VOLUME 7.4 fL (7.4-10.4); MONOCYTES % (AUTO) 5 % (2-9); NEUTROPHILS # (AUTO) 11.53 x10^3/uL (1.8-6.8); NEUTROPHILS % (AUTO) 81 % (42-75); PLATELET COUNT 486 x10^3/uL (130-400); RED CELL DISTRIBUTION WIDTH 14.7 % (9.6-15.2)
[2018-11-22 05:47] LABS: CALCIUM 9.3 mg/dL (8.5-10.1); CHLORIDE 104 mmol/L (98-107)
[2018-11-22 05:51] LABS: CREATININE 0.89 mg/dL (0.55-1.02)
[2018-11-22 06:30] LABS: ANION GAP 8 mmol/L (5-15)
[2018-11-22 07:59] VITALS: BP 113/53
[2018-11-22] MEDS: INSULIN LISPRO 100 UNITS/ML, PEN SQ-INSULIN SCH ×3 (08:17→17:46)
[2018-11-22] MEDS: INSULIN GLARGINE 100 UNITS/ML, PEN SQ-INSULIN SCH (08:17)
[2018-11-22] MEDS: AMIODARONE 200 MG TABLET PO SCH (08:18)
[2018-11-22] MEDS: ASPIRIN 81 MG TABLET EC PO SCH (08:18)
[2018-11-22] MEDS: FAMOTIDINE 20 MG TABLET PO SCH (08:18)
[2018-11-22] MEDS: SODIUM CHLORIDE FLUSH 10ML SYR IVF SCH (08:20)
[2018-11-22] MEDS: ERTAPENEM 1 GM in SODIUM CHLORIDE 0.9% 50 ML IV SCH (11:00)
[2018-11-22 13:00] VITALS: BP 124/59
[2018-11-22] MEDS ORDERED: INSU100I13 SQ-INSULIN (13:18)
[2018-11-22] MEDS ORDERED: ERTA1VIA IV (13:18)
[2018-11-22] MEDS ORDERED: INSU100I11 SQ-INSULIN (13:18)
[2018-11-22] MEDS ORDERED: FAMO20TA7 PO (13:18)
[2018-11-22] MEDS ORDERED: metFORMIN 850 MG TABLET PO SCH (17:00)
[2018-11-22] MEDS ORDERED: LISI5TAB7 PO (17:38)
[2018-11-22] MEDS: METOPROLOL SUCCINATE 25 MG TAB.ER.24H PO SCH (17:47)
[2018-11-22] MEDS ORDERED: INSULIN GLARGINE 100 UNITS/ML, PEN SQ-INSULIN SCH (21:00)
[2018-11-22] MEDS ORDERED: APIXABAN 5 MG TABLET PO SCH (21:00)
== END 2018-11-22 19:08 | DRG 853 ==
LOC: ED 09:14 → EDIP 11:37 → 4EST 12:44
PROVIDERS: ADMIT Hospitalist; ATTEND Hospitalist
PROC: BF101ZZ Fluoroscopy of Bile Ducts using Low Osmolar Contrast (ICD-10-PCS; 2018-11-15)
PROC: 0DB98ZX Excision of Duodenum, Via Natural or Artificial Opening Endoscopic, Diagnostic (ICD-10-PCS; 2018-11-15)
PROC: 0DB68ZX Excision of Stomach, Via Natural or Artificial Opening Endoscopic, Diagnostic (ICD-10-PCS; 2018-11-15)
PROC: 0FC98ZZ Extirpation of Matter from Common Bile Duct, Via Natural or Artificial Opening Endoscopic (ICD-10-PCS; principal; 2018-11-15 10:00)
PROC: 0UDB7ZX Extraction of Endometrium, Via Natural or Artificial Opening, Diagnostic (ICD-10-PCS; 2018-11-21)
DX: A41.51 Sepsis due to Escherichia coli [E. coli] (principal); N17.0 Acute kidney failure with tubular necrosis; L03.115 Cellulitis of right lower limb; D68.59 Other primary thrombophilia; I50.22 Chronic systolic (congestive) heart failure; I13.0 Hypertensive heart and chronic kidney disease with heart failure and stage 1 through stage 4 chronic kidney disease, or unspecified chronic kidney disease; K80.31 Calculus of bile duct with cholangitis, unspecified, with obstruction; L03.116 Cellulitis of left lower limb; N39.0 Urinary tract infection, site not specified; K00-K95 Diseases of the digestive system; A41.59 Other Gram-negative sepsis; E11.21 Type 2 diabetes mellitus with diabetic nephropathy; E11.22 Type 2 diabetes mellitus with diabetic chronic kidney disease; E11.51 Type 2 diabetes mellitus with diabetic peripheral angiopathy without gangrene; E11.65 Type 2 diabetes mellitus with hyperglycemia; E66.9 Obesity, unspecified; E78.00 Pure hypercholesterolemia, unspecified; E78.1 Pure hyperglyceridemia; E78.5 Hyperlipidemia, unspecified; E83.42 Hypomagnesemia; I25.10 Atherosclerotic heart disease of native coronary artery without angina pectoris; I25.2 Old myocardial infarction; I25.5 Ischemic cardiomyopathy; I48.0 Paroxysmal atrial fibrillation; K29.50 Unspecified chronic gastritis without bleeding; K56.41 Fecal impaction; L89.152 Pressure ulcer of sacral region, stage 2; B96.81 Helicobacter pylori [H. pylori] as the cause of diseases classified elsewhere; L89.319 Pressure ulcer of right buttock, unspecified stage; N71.9 Inflammatory disease of uterus, unspecified; N18.9 Chronic kidney disease, unspecified; N93.9 Abnormal uterine and vaginal bleeding, unspecified; N95.0 Postmenopausal bleeding; Z79.01 Long term (current) use of anticoagulants; Z79.4 Long term (current) use of insulin; Z79.82 Long term (current) use of aspirin; Z87.891 Personal history of nicotine dependence; Z89.421 Acquired absence of other right toe(s); Z89.512 Acquired absence of left leg below knee; Z90.49 Acquired absence of other specified parts of digestive tract; Z95.5 Presence of coronary angioplasty implant and graft; Z89.022 Acquired absence of left finger(s)
CPT/HCPCS: 36415; 71045; 74022; 74177; 74181; 74328; 74455; 76830; 80048; 80053; 81001; 82010; 82800; 82962; 83605; 83690; 83735; 84100; 84484; 85025; 85651; 86140; 86304; 87040; 87077; 87086; 87186; 88305; 93005; 96374; 99285; G0378; J0690; J1100; J1335; J1815; J2250; J2405; J2543; J2704; J3010; J3370; Q9967; C1769; J0330; J2060; J2210; J2370; J2590; J3475; J7030; J7040

== ENCOUNTER 2019-09-25 19:07 | Inpatient (IN) | payer MEDICARE ==
[~2019-09-25] VITALS: Ht 177.8 cm; Wt 87.8 kg
[~2019-09-25 19:07] MED LIST changes: +APIX5TAB PO; +FAMO20TA7 PO; +METF850T10 PO; +ONDA4VIA60 IVPush; -ONDA4VIA8 IVPush
--- NOTE | 2019-09-25 19:32 | NUR ---
PT BIB [facility] FOR UTI SYMPTOMS. PT HAS HAD INCREASED FREQUENCY AND FOUL SMELLING URINE FOR SEVERAL DAYS. PT ALSO HAS DM2 AND FSBG READ HIGH BY [facility]. 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 PT HAS REDNEES TO LEFT GROIN AREA WITH SKIN BREAKDOWN TO LEFT HIP AND SACRUM. VSS. PA AT BEDSIDE
[2019-09-25] MEDS ORDERED: ERTAPENEM 1 GM in SODIUM CHLORIDE 0.9% 50 ML IV ONE (20:00)
[2019-09-25] MEDS ORDERED: CEFTRIAXONE PMX 1GM/50ML 50 ML IVPB ONE (20:00)
[2019-09-25] MEDS ORDERED: SODIUM CHLORIDE 0.9%, 500ML IVBOLUS ONE ×2 (20:00→20:30)
[2019-09-25 20:07] LABS: BASOPHILS # (AUTO) 0.03 x10^3/uL (0-0.1); BASOPHILS % (AUTO) 0 % (0-1); EOSINOPHILS # (AUTO) 0.22 x10^3/uL (0-0.4); EOSINOPHILS % (AUTO) 2 % (1-7); LYMPHOCYTES # (AUTO) 1.35 x10^3/uL (1-3.4); LYMPHOCYTES % (AUTO) 12 % (22-44); MD NO; MEAN CORPUSCULAR HEMOGLOBIN 28.8 pg (27.0-34.8); MEAN CORPUSCULAR VOLUME 87.2 fL (80-100); MEAN PLATELET VOLUME 7.1 fL (7.4-10.4); MONOCYTES % (AUTO) 5 % (2-9); NEUTROPHILS # (AUTO) 8.89 x10^3/uL (1.8-6.8); NEUTROPHILS % (AUTO) 80 % (42-75); PLATELET COUNT 382 x10^3/uL (130-400); RED BLOOD COUNT 4.69 x10^6/uL (3.82-5.3); RED CELL DISTRIBUTION WIDTH 14.9 % (9.6-15.2)
[2019-09-25 20:11] LABS: ALBUMIN 2.5 g/dL (3.4-5.0); ANION GAP 7 mmol/L (5-15); CALCIUM 7.8 mg/dL (8.5-10.1); CHLORIDE 101 mmol/L (98-107)
[2019-09-25 20:14] LABS: ALANINE AMINOTRANSFERASE 15 U/L (12-78); ALKALINE PHOSPHATASE 154 U/L (45-117); BILIRUBIN,TOTAL 0.5 mg/dL (0.2-1.0); CREATININE 0.79 mg/dL (0.55-1.02); TOTAL PROTEIN 6.4 g/dL (6.4-8.2)
--- NOTE | 2019-09-25 20:20 | NUR ---
GLUCOSE 542 PER LAB
[2019-09-25] MEDS ORDERED: INSULIN REGULAR 100 UNITS/ML, 3ML VIAL SQ-INSULIN ONE (20:30)
[2019-09-25] MEDS ORDERED: INSULIN SINGLE DOSE, ER SQ-INSULIN ONE (20:37)
[2019-09-25 20:55] LABS: CULTURE INDICATED? YES; MICROSCOPIC INDICATED
--- NOTE | 2019-09-25 21:05 | NUR ---
PT MEDICATED WITH INSULIN SUB Q. FLUIIDS RUNNING. ABX FINISHED. PILLOW PLACED UNDER TO TAKE PRESSURE OFF SACRUM. VSS. CALL LIGHT IN REACH
[2019-09-25 21:20] LABS: ACETONE, SERUM Small (20mg/dL) mg/dL (Negative)
[2019-09-25] MEDS ORDERED: SODIUM CHLORIDE 0.9% 1,000 ML IV SCH (21:24)
[2019-09-25] MEDS ORDERED: POLYETHYLENE GLYCOL 17 GM PACKET PO PRN (21:30)
[2019-09-25] MEDS ORDERED: ONDANSETRON ODT 4 MG PO PRN (21:30)
[2019-09-25] MEDS ORDERED: BISACODYL 10 MG SUPP PR PRN (21:30)
[2019-09-25] MEDS ORDERED: INSULIN LISPRO 100 UNITS/ML, PEN SQ-INSULIN SCH (21:30)
--- NOTE | 2019-09-25 21:57 | NUR ---
[facility] 438 AFTER INSULIN AND FLUIDS. PT TO BE TRANSPORTED
[2019-09-25 21:59] LABS: HEMOGLOBIN A1C 11.9 % (4.2-6.3)
[2019-09-26] MEDS: metFORMIN 850 MG TABLET PO SCH ×3 (00:28→21:59)
[2019-09-26] MEDS: APIXABAN 5 MG TABLET PO SCH ×3 (00:28→21:59)
[2019-09-26] MEDS: CEFTRIAXONE PMX 1GM/50ML 50 ML IV SCH ×2 (00:28→21:59)
[2019-09-26] MEDS: INSULIN GLARGINE 100 UNITS/ML, PEN SQ-INSULIN SCH ×4 (00:30→22:00)
[2019-09-26] MEDS: INSULIN LISPRO 100 UNITS/ML, PEN SQ-INSULIN SCH ×5 (00:31→22:01)
[2019-09-26 00:45] VITALS: BP 162/73
[2019-09-26 01:48] VITALS: BP 162/73
[2019-09-26] MEDS: ASPIRIN 81 MG TABLET EC PO SCH (05:56)
[2019-09-26 06:30] LABS: MEAN CORPUSCULAR HEMOGLOBIN 28.5 pg (27.0-34.8); MEAN CORPUSCULAR HGB CONC 33.2 g/dL (32.4-35.8); MEAN CORPUSCULAR VOLUME 85.9 fL (80-100); MEAN PLATELET VOLUME 6.7 fL (7.4-10.4); PLATELET COUNT 395 x10^3/uL (130-400); RED BLOOD COUNT 4.76 x10^6/uL (3.82-5.3); RED CELL DISTRIBUTION WIDTH 14.7 % (9.6-15.2)
[2019-09-26 06:38] LABS: ALANINE AMINOTRANSFERASE 14 U/L (12-78); ALBUMIN 2.4 g/dL (3.4-5.0); ANION GAP 8 mmol/L (5-15); CALCIUM 7.6 mg/dL (8.5-10.1); CHLORIDE 109 mmol/L (98-107); CREATININE 0.48 mg/dL (0.55-1.02)
[2019-09-26 06:40] LABS: ALKALINE PHOSPHATASE 136 U/L (45-117); BILIRUBIN,TOTAL 0.3 mg/dL (0.2-1.0); TOTAL PROTEIN 6.2 g/dL (6.4-8.2)
[2019-09-26 06:55] VITALS: BP 148/81
[2019-09-26 07:19] LABS: BASOPHILS # (AUTO) 0.04 x10^3/uL (0-0.1); BASOPHILS % (AUTO) 0 % (0-1); EOSINOPHILS # (AUTO) 0.37 x10^3/uL (0-0.4); EOSINOPHILS % (AUTO) 3 % (1-7); LYMPHOCYTES # (AUTO) 3.05 x10^3/uL (1-3.4); LYMPHOCYTES % (AUTO) 21 % (22-44); MD SCAN; MONOCYTES # (AUTO) 0.77 x10^3/uL (0.2-0.8); MONOCYTES % (AUTO) 5 % (2-9); NEUTROPHILS # (AUTO) 10.08 x10^3/uL (1.8-6.8); NEUTROPHILS % (AUTO) 70 % (42-75)
[2019-09-26] MEDS: SENNA/DOCUSATE TABLET PO SCH (09:00)
[2019-09-26] MEDS: DEXTROSE 5% 1,000 ML IV SCH ×2 (09:58→22:06)
[2019-09-26] MEDS: POTASSIUM CHLORIDE 20 MEQ TAB.ER.PRT PO SCH ×2 (09:59→11:51)
[2019-09-26 13:09] VITALS: BP 165/72
[2019-09-26 19:05] VITALS: BP 147/77
[2019-09-27 01:04] VITALS: BP 139/79
[2019-09-27 05:15] LABS: BASOPHILS # (AUTO) 0.03 x10^3/uL (0-0.1); BASOPHILS % (AUTO) 0 % (0-1); EOSINOPHILS # (AUTO) 0.33 x10^3/uL (0-0.4); EOSINOPHILS % (AUTO) 3 % (1-7); LYMPHOCYTES % (AUTO) 22 % (22-44); MD NO; MEAN CORPUSCULAR HEMOGLOBIN 28.3 pg (27.0-34.8); MEAN CORPUSCULAR HGB CONC 32.7 g/dL (32.4-35.8); MEAN CORPUSCULAR VOLUME 86.5 fL (80-100); MEAN PLATELET VOLUME 6.5 fL (7.4-10.4); MONOCYTES # (AUTO) 0.85 x10^3/uL (0.2-0.8); MONOCYTES % (AUTO) 6 % (2-9); NEUTROPHILS # (AUTO) 9.17 x10^3/uL (1.8-6.8); NEUTROPHILS % (AUTO) 69 % (42-75); PLATELET COUNT 365 x10^3/uL (130-400); RED BLOOD COUNT 4.38 x10^6/uL (3.82-5.3); RED CELL DISTRIBUTION WIDTH 14.9 % (9.6-15.2)
[2019-09-27 05:20] LABS: CHLORIDE 106 mmol/L (98-107)
[2019-09-27 05:32] LABS: ALANINE AMINOTRANSFERASE 13 U/L (12-78); ALBUMIN 2.1 g/dL (3.4-5.0); ALKALINE PHOSPHATASE 130 U/L (45-117); ANION GAP 7 mmol/L (5-15); BILIRUBIN,TOTAL 0.5 mg/dL (0.2-1.0); CALCIUM 7.7 mg/dL (8.5-10.1); CREATININE 0.47 mg/dL (0.55-1.02); TOTAL PROTEIN 5.9 g/dL (6.4-8.2)
[2019-09-27] MEDS: ASPIRIN 81 MG TABLET EC PO SCH (06:28)
[2019-09-27 06:56] VITALS: BP 151/83
[2019-09-27] MEDS: INSULIN LISPRO 100 UNITS/ML, PEN SQ-INSULIN SCH ×4 (07:00→20:21)
[2019-09-27] MEDS: metFORMIN 850 MG TABLET PO SCH ×2 (08:58→20:20)
[2019-09-27] MEDS: APIXABAN 5 MG TABLET PO SCH ×2 (08:58→20:20)
[2019-09-27] MEDS: INSULIN GLARGINE 100 UNITS/ML, PEN SQ-INSULIN SCH ×2 (08:58→20:20)
[2019-09-27] MEDS: SENNA/DOCUSATE TABLET PO SCH (09:00)
[2019-09-27 12:44] VITALS: BP 142/73
[2019-09-27] MEDS ORDERED: MAGNESIUM SULFATE 6 GM in SODIUM CHLORIDE 0.9% 150 ML IV ONE (13:30)
[2019-09-27] MEDS ORDERED: POTASSIUM PHOSPHATE 44 MEQ in SODIUM CHLORIDE 0.9% 500 ML IV SCH ×2 (13:30→14:00)
[2019-09-27] MEDS: POTASSIUM PHOSPHATE 44 MEQ in SODIUM CHLORIDE 0.9% 500 ML IV SCH (20:20)
[2019-09-27] MEDS: CEFTRIAXONE PMX 1GM/50ML 50 ML IV SCH (21:19)
[2019-09-27 21:44] VITALS: BP 128/71
[2019-09-28 00:02] VITALS: BP 101/64
[2019-09-28] MEDS: POTASSIUM PHOSPHATE 44 MEQ in SODIUM CHLORIDE 0.9% 500 ML IV SCH (02:40)
[2019-09-28 06:07] LABS: BASOPHILS # (AUTO) 0.02 x10^3/uL (0-0.1); BASOPHILS % (AUTO) 0 % (0-1); EOSINOPHILS # (AUTO) 0.31 x10^3/uL (0-0.4); EOSINOPHILS % (AUTO) 3 % (1-7); LYMPHOCYTES # (AUTO) 2.63 x10^3/uL (1-3.4); LYMPHOCYTES % (AUTO) 24 % (22-44); MD NO; MEAN CORPUSCULAR HEMOGLOBIN 28.4 pg (27.0-34.8); MEAN CORPUSCULAR HGB CONC 33.1 g/dL (32.4-35.8); MEAN CORPUSCULAR VOLUME 85.8 fL (80-100); MEAN PLATELET VOLUME 6.3 fL (7.4-10.4); MONOCYTES # (AUTO) 0.69 x10^3/uL (0.2-0.8); MONOCYTES % (AUTO) 6 % (2-9); NEUTROPHILS # (AUTO) 7.45 x10^3/uL (1.8-6.8); NEUTROPHILS % (AUTO) 67 % (42-75); PLATELET COUNT 401 x10^3/uL (130-400); RED BLOOD COUNT 4.48 x10^6/uL (3.82-5.3); RED CELL DISTRIBUTION WIDTH 14.9 % (9.6-15.2)
[2019-09-28 06:14] LABS: ALANINE AMINOTRANSFERASE 12 U/L (12-78); ALBUMIN 2.1 g/dL (3.4-5.0); ANION GAP 4 mmol/L (5-15); CALCIUM 8.5 mg/dL (8.5-10.1); CHLORIDE 108 mmol/L (98-107)
[2019-09-28 06:16] LABS: ALKALINE PHOSPHATASE 141 U/L (45-117); BILIRUBIN,TOTAL 0.4 mg/dL (0.2-1.0); TOTAL PROTEIN 6.2 g/dL (6.4-8.2)
[2019-09-28] MEDS: INSULIN LISPRO 100 UNITS/ML, PEN SQ-INSULIN SCH ×4 (07:00→20:56)
[2019-09-28 07:46] VITALS: BP 145/65
[2019-09-28] MEDS: ASPIRIN 81 MG TABLET EC PO SCH (08:55)
[2019-09-28] MEDS: metFORMIN 850 MG TABLET PO SCH ×2 (08:56→20:55)
[2019-09-28] MEDS: SENNA/DOCUSATE TABLET PO SCH (08:56)
[2019-09-28] MEDS: APIXABAN 5 MG TABLET PO SCH ×2 (08:56→20:55)
[2019-09-28] MEDS: INSULIN GLARGINE 100 UNITS/ML, PEN SQ-INSULIN SCH ×2 (08:58→20:56)
[2019-09-28] MEDS: ACETAMINOPHEN 325 MG TABLET PO PRN ×3 (10:22→18:13)
[2019-09-28 11:58] VITALS: BP 124/74
[2019-09-28] MEDS ORDERED: SODIUM POLYSTYRENE SULFONATE ORAL SUSP PO ONE (14:30)
[2019-09-28] MEDS: ERTAPENEM 1 GM in SODIUM CHLORIDE 0.9% 50 ML IV SCH (15:17)
[2019-09-28 19:55] VITALS: BP_SYST 104; BP_SYST 118; BP_DIAS 58; BP_DIAS 69
[2019-09-29 01:05] VITALS: BP 122/74
[2019-09-29 05:04] LABS: CLOSTRIDIUM DIFFICILE ANTIGEN NEGATIVE; CLOSTRIDIUM DIFFICILE TOXIN NEGATIVE (Negative)
[2019-09-29 05:36] LABS: BASOPHILS # (AUTO) 0.04 x10^3/uL (0-0.1); BASOPHILS % (AUTO) 0 % (0-1); EOSINOPHILS # (AUTO) 0.26 x10^3/uL (0-0.4); EOSINOPHILS % (AUTO) 2 % (1-7); LYMPHOCYTES # (AUTO) 1.72 x10^3/uL (1-3.4); LYMPHOCYTES % (AUTO) 16 % (22-44); MD NO; MEAN CORPUSCULAR HEMOGLOBIN 28.7 pg (27.0-34.8); MEAN CORPUSCULAR HGB CONC 32.6 g/dL (32.4-35.8); MEAN CORPUSCULAR VOLUME 88.1 fL (80-100); MEAN PLATELET VOLUME 6.4 fL (7.4-10.4); MONOCYTES # (AUTO) 0.77 x10^3/uL (0.2-0.8); MONOCYTES % (AUTO) 7 % (2-9); NEUTROPHILS # (AUTO) 8.31 x10^3/uL (1.8-6.8); NEUTROPHILS % (AUTO) 75 % (42-75); PLATELET COUNT 439 x10^3/uL (130-400); RED BLOOD COUNT 4.57 x10^6/uL (3.82-5.3); RED CELL DISTRIBUTION WIDTH 15.3 % (9.6-15.2)
[2019-09-29] MEDS: ASPIRIN 81 MG TABLET EC PO SCH (05:45)
[2019-09-29 05:49] LABS: ANION GAP 5 mmol/L (5-15); CALCIUM 7.9 mg/dL (8.5-10.1); CHLORIDE 109 mmol/L (98-107); CREATININE 0.51 mg/dL (0.55-1.02)
[2019-09-29] MEDS: INSULIN LISPRO 100 UNITS/ML, PEN SQ-INSULIN SCH ×3 (07:00→15:27)
[2019-09-29 07:23] VITALS: BP 127/68
[2019-09-29] MEDS: SENNA/DOCUSATE TABLET PO SCH (08:04)
[2019-09-29] MEDS ORDERED: MAGNESIUM SULFATE 4 GM in SODIUM CHLORIDE 0.9% 100 ML IV ONE (08:10)
[2019-09-29] MEDS ORDERED: MAGNESIUM SULFATE PMX 4GM/100M 100 ML IV ONE (08:28)
[2019-09-29] MEDS: APIXABAN 5 MG TABLET PO SCH (08:50)
[2019-09-29] MEDS: INSULIN GLARGINE 100 UNITS/ML, PEN SQ-INSULIN SCH (08:50)
[2019-09-29] MEDS: metFORMIN 850 MG TABLET PO SCH (08:50)
[2019-09-29 12:49] VITALS: BP 125/75
[2019-09-29] MEDS ORDERED: ACET325T26 PO (13:54)
[2019-09-29] MEDS ORDERED: ONDA4TAB13 PO (13:54)
[2019-09-29] MEDS ORDERED: POLY17PO5 PO (13:54)
[2019-09-29] MEDS ORDERED: ERTA1VIA IV (13:54)
[2019-09-29] MEDS ORDERED: MAGN400T26 PO (13:54)
[2019-09-29] MEDS ORDERED: SIMV20TA PO (13:55)
[2019-09-29] MEDS: ERTAPENEM 1 GM in SODIUM CHLORIDE 0.9% 50 ML IV SCH (14:56)
== END 2019-09-29 18:05 | DRG 689 ==
LOC: ED 21:27 → EDIP 21:37 → 3N 22:37
PROVIDERS: ADMIT Internal Medicine; ATTEND Internal Medicine
PROC: 0T9B70Z Drainage of Bladder with Drainage Device, Via Natural or Artificial Opening (ICD-10-PCS; principal; 2019-09-25)
DX: N39.0 Urinary tract infection, site not specified (principal); L89.323 Pressure ulcer of left buttock, stage 3; E11.00 Type 2 diabetes mellitus with hyperosmolarity without nonketotic hyperglycemic-hyperosmolar coma (NKHHC); E87.2 Acidosis; I50.22 Chronic systolic (congestive) heart failure; D68.69 Other thrombophilia; Z16.12 Extended spectrum beta lactamase (ESBL) resistance; E87.0 Hyperosmolality and hypernatremia; L89.159 Pressure ulcer of sacral region, unspecified stage; B36.9 Superficial mycosis, unspecified; B96.20 Unspecified Escherichia coli [E. coli] as the cause of diseases classified elsewhere; B96.89 Other specified bacterial agents as the cause of diseases classified elsewhere; E11.42 Type 2 diabetes mellitus with diabetic polyneuropathy; E11.51 Type 2 diabetes mellitus with diabetic peripheral angiopathy without gangrene; E83.39 Other disorders of phosphorus metabolism; E83.42 Hypomagnesemia; I11.0 Hypertensive heart disease with heart failure; I25.10 Atherosclerotic heart disease of native coronary artery without angina pectoris; I48.0 Paroxysmal atrial fibrillation; R62.7 Adult failure to thrive; E87.6 Hypokalemia; Z66 Do not resuscitate; I25.5 Ischemic cardiomyopathy; Z68.27 Body mass index [BMI] 27.0-27.9, adult; Z99.3 Dependence on wheelchair; Z89.512 Acquired absence of left leg below knee; Z79.4 Long term (current) use of insulin; Z79.01 Long term (current) use of anticoagulants; Z90.49 Acquired absence of other specified parts of digestive tract; L89.229 Pressure ulcer of left hip, unspecified stage
CPT/HCPCS: 36415; 80048; 80053; 81001; 82010; 82550; 82800; 82962; 83036; 83605; 83735; 84100; 84145; 85025; 87040; 87077; 87086; 87186; 87324; 93005; G0378; J0696; J1335; J3475; J7070; J1815; J7030; J7040

== ENCOUNTER 2019-10-15 13:16 | Emergency (ER) | payer MEDICARE ==
[~2019-10-15] VITALS: Ht 177.8 cm; Wt 98.5 kg
[~2019-10-15 13:16] MED LIST changes: +ACET325T26 PO; +MAGN400T26 PO; +ONDA4TAB13 PO; +SIMV20TA PO
[2019-10-15] MEDS ORDERED: MORPHINE SULFATE 4 MG/ML, 1ML IVPush PRN (13:30)
[2019-10-15] MEDS ORDERED: SODIUM CHLORIDE FLUSH 10ML SYR IVF ONE (13:30)
--- NOTE | 2019-10-15 13:30 | NUR ---
REPORT RECEIVED FROM TWIN MARTINEZ. PT ARRIVED FROM SNF VIA AMBULANCE WITH C/O ABD PAIN X 3 DAYS, PT STATES SHE HAS NOT FELT CONSTIPATED BUT HAS NOT HAD A BM X 3 DAYS. SMALL AMOUNT OF FORMED BROWN STOOL NOTED IN BREIF ON ARRIVAL, JILLIAN CARE PERFORMED, PT PLACED ON CHUX PAD BY THIS RN. PT NOTES PAIN TO SACRUM SECONDARY TO CHRONIC DECUBITUS ULCER TO THIS AREA, PILLOW PLACED UNDER RIGHT HIP, WEIGHT SHIFTS IN PLACE Q30MIN. PT IS A&OX4, RESPS EVEN AND UNLABORED, NADN. BP AND SPO2 MONITORS IN PLACE. CALL LIGHT IN REACH.
[2019-10-15] MEDS ORDERED: MORPHINE SULFATE 4 MG/ML, 1ML ONE (13:40)
[2019-10-15 13:47] LABS: BASOPHILS # (AUTO) 0.04 x10^3/uL (0-0.1); BASOPHILS % (AUTO) 0 % (0-1); EOSINOPHILS # (AUTO) 0.24 x10^3/uL (0-0.4); EOSINOPHILS % (AUTO) 2 % (1-7); LYMPHOCYTES # (AUTO) 2.52 x10^3/uL (1-3.4); LYMPHOCYTES % (AUTO) 23 % (22-44); MD NO; MEAN CORPUSCULAR HEMOGLOBIN 28.9 pg (27.0-34.8); MEAN CORPUSCULAR VOLUME 87.5 fL (80-100); MEAN PLATELET VOLUME 6.5 fL (7.4-10.4); MONOCYTES # (AUTO) 0.73 x10^3/uL (0.2-0.8); MONOCYTES % (AUTO) 7 % (2-9); NEUTROPHILS # (AUTO) 7.38 x10^3/uL (1.8-6.8); NEUTROPHILS % (AUTO) 68 % (42-75); PLATELET COUNT 559 x10^3/uL (130-400); RED BLOOD COUNT 3.91 x10^6/uL (3.82-5.3); RED CELL DISTRIBUTION WIDTH 15.5 % (9.6-15.2)
--- NOTE | 2019-10-15 13:50 | NUR ---
PT IS INCONTINENT OF URINE, DEE MCMANUS RN TO STRAIGHT CATH. PT STRAIGHT CATH'D , STERILE TECHNIQUE MAINTAINED. PT TOLERATED WELL.
[2019-10-15 13:53] LABS: INTERNATIONAL NORMALIZED RATIO 1.04 (0.93-1.1); PROTHROMBIN TIME 10.9 Seconds (9.6-11.5)
--- NOTE | 2019-10-15 14:00 | NUR ---
DECUBITUS ULCER NOTED TO SACRUM WITH SURROUNDING RASH, DEE STEVENSON AT BEDSIDE TO EVALUATE.
[2019-10-15 14:04] LABS: ALBUMIN 2.6 g/dL (3.4-5.0); ANION GAP 6 mmol/L (5-15); CALCIUM 8.9 mg/dL (8.5-10.1); CHLORIDE 108 mmol/L (98-107)
--- NOTE | 2019-10-15 14:06 | NUR ---
PER MD STEVENSON, PT'S RASH TO BUTTOCKS IS YEAST DERMATITIS.
[2019-10-15 14:08] LABS: ALANINE AMINOTRANSFERASE 13 U/L (12-78); ALKALINE PHOSPHATASE 173 U/L (45-117); BILIRUBIN,TOTAL 0.3 mg/dL (0.2-1.0); CREATININE 0.67 mg/dL (0.55-1.02); TOTAL PROTEIN 7.3 g/dL (6.4-8.2)
--- NOTE | 2019-10-15 14:09 | NUR ---
PT REPORTS ABD PAIN LEVEL DOWN FROM 9/10 TO 5/10 AT THIS TIME. PT A&O, RESPS EVEN AND UNLABORED, NADN.
[2019-10-15] MEDS ORDERED: MICONAZOLE POWDER TP (14:22)
[2019-10-15] MEDS ORDERED: METFORMIN PO (14:22)
[2019-10-15] MEDS ORDERED: DEXT31GE5 PO (14:22)
[2019-10-15] MEDS ORDERED: MAGN400T9 PO (14:22)
[2019-10-15] MEDS ORDERED: FLEET ENEMA PR (14:22)
[2019-10-15] MEDS ORDERED: ACET325T14 PO (14:22)
[2019-10-15] MEDS ORDERED: POLY17PO5 PO (14:22)
[2019-10-15] MEDS ORDERED: ONDA4TAB13 SL (14:22)
[2019-10-15 14:28] LABS: MICROSCOPIC NOT IND
[2019-10-15 14:36] LABS: CULTURE INDICATED? NO
[2019-10-15] MEDS ORDERED: INSU100I13 SQ-INSULIN (14:37)
[2019-10-15] MEDS ORDERED: FAMO20TA7 PO (14:37)
[2019-10-15] MEDS ORDERED: TYLENOL PR (14:37)
[2019-10-15] MEDS ORDERED: ASPIRIN PO (14:37)
[2019-10-15] MEDS ORDERED: NOVOLOG FLEXPEN SQ (14:37)
--- NOTE | 2019-10-15 14:37 | NUR ---
PT BACK FROM CT. PT A&O, RESPS EVEN AND UNLABORED. PT STATES SHE HAS NOT TAKEN ELIQUIS FOR MONTHS, HOWEVER NURSING CHARTING SENT FROM [facility] STATES SHE HAS BEEN RECEIVING ELIQUIS 5MG BID AT FACILITY. PT ADEMATELY STATES SHE NO LONGER TAKES ELIQUIS. PT CONFIRMS OTHER MEDS IN MED REC FROM [facility] ARE CORRECT. MED REC COMPLETED BY THIS RN.
--- NOTE | 2019-10-15 14:42 | NUR ---
PT DENIES PAIN AT THIS TIME. PT A&OX4, RESPS EVEN AND UNLABORED. VSS. AWAITING CT READ AND DISPO AT THIS TIME. CALL LIGHT IN REACH.
--- NOTE | 2019-10-15 14:45 | NUR ---
REPORT GIVEN TO TWIN RAZO. PT SLEEPING, RESPS EVEN AND UNLABORED. BP AND SPO2 MONITORS IN PLACE.
[2019-10-15] MEDS ORDERED: OMNIPAQUE 350 MG/ML, 100ML BOTTLE ONE (14:47)
--- NOTE | 2019-10-15 14:53 | NUR ---
Received report from TWIN Oglesby. All questions answered. Assuming care of pt at this time. Pending CT results at this time. NADN. No needs expressed at this time. Call light within reach.
[2019-10-15] MEDS ORDERED: SODIUM CHLORIDE 0.9% 1,000ML IVBOLUS ONE (16:00)
--- NOTE | 2019-10-15 17:04 | NUR ---
Called [facility] at [phone] and spoke to TWIN Ramirez. Provided RN to RN report. [facility] director of transportation is "gone for the day". Pt will need transport back to SNF from ED. Throughput RN aware.
--- NOTE | 2019-10-15 17:23 | NUR ---
THROUGHPUT: LEFT MESSAGE WITH [facility] TO ARRANGE TRANSPORT BACK TO [facility].
[2019-10-15 17:38] VITALS: BP 111/39
--- NOTE | 2019-10-15 17:40 | NUR ---
Pt pending transportation back to [facility]. Patient given discharge instructions and they have confirmed that they understand the instructions.
--- NOTE | 2019-10-15 18:05 | NUR ---
Called pt's grandson/next of kin at listed contact number [phone]. Phone call answered, "he is not available at the moment". Throughput RN aware.
--- NOTE | 2019-10-15 18:20 | NUR ---
THROUGHPUT: [facility] UNABLE TO TRANSPORT TONIGHT, PT FAMILY UNABLE TO TRANSPORT PT, [facility] TO TRANSPORT PT BACK TO [place] @1900.
--- NOTE | 2019-10-15 18:24 | NUR ---
Ordered pt dinner tray while waiting for transportation back to SNF.
--- NOTE | 2019-10-15 18:29 | NUR ---
Pt aware of [facility] transport and potential finacial obligations. Pt states verbal understanding and consent. Pt appreciative.
--- NOTE | 2019-10-15 18:47 | NUR ---
REPORT RECEIVED FROM TWIN RAZO.
--- NOTE | 2019-10-15 19:00 | NUR ---
Provided pt dinner tray. Pt appreciative. Emptied cruz bag of 900 mL of clear yellow urine. Provided report to TWIN Recio. All questions answered. TWIN Recio to assume care of pt at this time.
== END 2019-10-15 19:16 | disposition home or self-care (01) ==
LOC: ED 13:35
DX: R10.33 Periumbilical pain (principal); R33.9 Retention of urine, unspecified; R93.5 Abnormal findings on diagnostic imaging of other abdominal regions, including retroperitoneum; I10 Essential (primary) hypertension; E11.65 Type 2 diabetes mellitus with hyperglycemia; I48.91 Unspecified atrial fibrillation; Z90.89 Acquired absence of other organs; Z90.49 Acquired absence of other specified parts of digestive tract
CPT/HCPCS: 36415; 74177; 80053; 81003; 83605; 83690; 85025; 85610; 93005; 96361; 96374; 99284; J2270; J7030; Q9967